=== PATIENT | male | born 1995 | race Caucasian/White ===

== ENCOUNTER 2017-07-21 14:23 | Inpatient (IN) | payer BC ==
[~2017-07-21] VITALS: Ht 177.8 cm; Wt 71.0 kg
[2017-07-21] MEDS ORDERED: ONDANSETRON INJ 2 MG/ML 2 ML VIAL IV STA (14:50)
[2017-07-21] MEDS ORDERED: SODIUM CHLORIDE 0.9% 1000ML 1,000 ML IV STA (14:50)
[2017-07-21] MEDS ORDERED: FAMOTIDINE IV INJ 20 MG in DEXTROSE 5% 100ML 100 ML IV SCH ×2 (15:00→17:30)
[2017-07-21] MEDS ORDERED: PANTOprazole INJ 80 MG in DEXTROSE 5% 100ML IV SCH (15:15)
[2017-07-21 15:24] LABS: BASO % 0.1 %; BASO ABS # 0.02 K/uL (0-0.2); COMPLETE YES; EOS % 0.1 %; HEMATOCRIT 38.8 % (42-52); IG% 0.2 %; LYMPH % 9.5 %; LYMPH ABS # 1.59 K/uL (1.2-3.4); MEAN CELL VOLUME 88.4 fL (80-100); MEAN CORPUSCULAR HEMOGLOBIN 32.1 pg (25-34); MEAN CORPUSCULAR HGB CONC 36.3 g/dl (32-36); MEAN PLATELET VOLUME 9.9 fL (7.4-10.4); MONO % 3.9 %; NEUT % 86.2 %; PLATELET COUNT 374 K/uL (130-400); RED BLOOD COUNT 4.39 M/uL (4.7-6.1); WHITE BLOOD COUNT 16.81 K/uL (4.8-10.8)
[2017-07-21] MEDS ORDERED: PANTOprazole INJ 40 MG in DEXTROSE 5% 100ML IV SCH (15:30)
[2017-07-21 15:33] LABS: INR 1.1 (0.9-1.1); PARTIAL THROMBOPLASTIN RATIO 0.9
[2017-07-21 15:44] LABS: CALCIUM 9.3 mg/dl (8.5-10.1); CREATININE 0.98 mg/dl (0.60-1.40); POTASSIUM 3.7 mmol/L (3.5-5.1)
--- NOTE | 2017-07-21 16:04 | DIAGNOSTIC IMAGING REPORT ---
CHEST ONE VIEW PORTABLE HISTORY: 22 years-old Male EVALUATE GI BLEED acute GI bleed COMPARISON: None available TECHNIQUE: Portable upright AP view of the chest FINDINGS: Cardiomediastinal and hilar silhouettes are within normal limits. There is no pneumothorax, pleural effusion, focal airspace consolidation or overt pulmonary edema. Bones of the chest are grossly intact. IMPRESSION: No acute cardiopulmonary process. The above report was generated using voice recognition software. It may contain grammatical, syntax or spelling errors. Electronically signed by: Darnell Connell M.D. 07/21/2017 4:02 PM Dictated Date/Time: 07/21/2017 4:01 PM
[2017-07-21 16:43] LABS: URINE APPEARANCE CLEAR (CLEAR); URINE BILIRUBIN NEG (NEG); URINE COLOR DK YELLOW; URINE NITRITE NEG (NEG); URINE SPECIFIC GRAVITY 1.031 (1.000-1.030); UROBILINOGEN NEG (NEG)
[2017-07-21 16:44] VITALS: O2SAT 100; Ht 177.8 cm; Wt 71.0 kg
[2017-07-21 16:46] LABS: MANUAL MICROSCOPIC REQUIRED? NO; REVIEW REQ? NO
[2017-07-21] MEDS ORDERED: POLYETHYLENE (MIRALAX) 17 GM PACK PO PRN (17:30)
[2017-07-21] MEDS ORDERED: ACETAMINOPHEN 325 MG TAB PO PRN (17:30)
[2017-07-21] MEDS ORDERED: MAGNESIUM HYDROXIDE SUSP 30 ML UDC PO PRN (17:30)
[2017-07-21] MEDS ORDERED: ZOLPIDEM TARTRATE 5 MG TAB PO PRN ×2 (17:30)
[2017-07-21] MEDS ORDERED: ALUMINUM/MAGNESIUM/SIMETH (MAALOX MAX) 30 ML UDC PO PRN (17:30)
--- NOTE | 2017-07-21 17:42 | EMERGENCY ROOM VISIT NOTE ---
History Report prepared by Marie: Wade Unger Under the Supervision of: Dr. Sam Puentes D.O. First contact with patient: 14:47 Chief Complaint: VOMITING Stated Complaint: VOMITING BLACK SUBSTANCE AND A LOT OF BLOOD History of Present Illness The patient is a 22 year old male who presents to the Emergency Room with complaints of a persistent illness that started last night. He says that he was drinking an excessive amount of beer yesterday, and last night, he started to get sick and vomited. The patient states that he saw small traces of blood in the vomit. He says that he tried to drink lots of water and then went to bed. However, he states that when he woke up this morning, he had abdominal pain and vomited almost immediately. The patient says that when he vomited he noticed that it was really dark with some blood, and he states that he has been vomiting all day, and with each subsequent vomiting, it becomes more and more bloody. He notes that last night his stools were fine, but today he has had 2 bowel movements and they were very black. He says that his abdominal pain comes and goes with the vomiting, and after he vomits, he feels great for a while. The patient states that he gets a bit of a runny nose during his vomiting spells. He denies any cough. The patient says that he drinks alcohol every weekend. He notes no history of abdominal surgeries. He also notes no chronic medical problems. He says that he has not had any Tylenol, Motrin, or recent steroids. Source of History: patient Onset: Last night Position: other (global - illness) Timing: other (persistent) Associated Symptoms: + vomiting (blood), + abdominal pain, No cough Note: Associated symptoms: Very black stools. Bit of runny nose while vomiting. Review of Systems See HPI for pertinent positives & negatives. A total of 10 systems reviewed and were otherwise negative. Past Medical & Surgical Medical Problems: (1) Hematemesis (2) No chronic diseases present Family History No pertinent family history Social History Smoking Status: Never Smoker Alcohol Use: occasionally Marital Status: single Housing Status: lives with roommate Occupation Status: [employer] student Current/Historical Medications No Active Prescriptions or Reported Meds Allergies Coded Allergies: No Known Allergies (Unverified , 07/21/17) Physical Exam Vital Signs Date Time Temp Pulse Resp B/P (MAP) Pulse Ox O2 Delivery O2 Flow Rate FiO2 07/21/17 16:44 100 Room Air 07/21/17 16:30 95 20 148/59 98 Room Air 07/21/17 16:01 147/77 07/21/17 15:53 65 22 100 07/21/17 15:31 135/94 07/21/17 15:26 74 07/21/17 15:21 121/99 07/21/17 15:19 69 20 121/99 99 Room Air 07/21/17 15:15 99 Room Air 07/21/17 14:43 36.5 84 17 144/94 99 Room Air Physical Exam GENERAL: Sitting up in bed, alert, well appearing, well nourished, no distress, non-toxic EYE EXAM: normal conjunctiva. OROPHARYNX: No exudate, no erythema, buccal mucosa, and tongue normal and mucous membranes are dry. Faint blood around lips. NECK: supple, no nuchal rigidity, no adenopathy, non-tender LUNGS: Clear to auscultation. Normal chest wall mechanics HEART: no murmurs, S1 normal and S2 normal ABDOMEN: abdomen soft, non-tender, normo-active bowel sounds, no masses, no rebound or guarding. BACK: Back is symmetrical on inspection and there is no deformity, no midline tenderness, no CVA tenderness. RECTAL: Gross heme-positive stool SKIN: no rashes and no bruising UPPER EXTREMITIES: upper extremities are grossly normal. LOWER EXTREMITIES: No pitting edema. NEURO EXAM: Normal sensorium, cranial nerves II-XII grossly intact, normal speech, no gross weakness of arms, no gross weakness of legs. Medical Decision & Procedures ER Provider Diagnostic Interpretation: X-ray results as stated below per my review and the radiologist's interpretation : CHEST ONE VIEW PORTABLE HISTORY: 22 years-old Male EVALUATE GI BLEED acute GI bleed COMPARISON: None available TECHNIQUE: Portable upright AP view of the chest FINDINGS: Cardiomediastinal and hilar silhouettes are within normal limits. There is no pneumothorax, pleural effusion, focal airspace consolidation or overt pulmonary edema. Bones of the chest are grossly intact. IMPRESSION: No acute cardiopulmonary process. The above report was generated using voice recognition software. It may contain grammatical, syntax or spelling errors. Electronically signed by: Darnell Connell M.D. 07/21/2017 4:02 PM Dictated Date/Time: 07/21/2017 4:01 PM Laboratory Results 07/21/17 15:08 Red Blood Count 4.39, Mean Corpuscular Volume 88.4, Mean Corpuscular Hemoglobin 32.1, Mean Corpuscular Hemoglobin Concent 36.3, Mean Platelet Volume 9.9, Neutrophils (%) (Auto) 86.2, Lymphocytes (%) (Auto) 9.5, Monocytes (%) (Auto) 3.9, Eosinophils (%) (Auto) 0.1, Basophils (%) (Auto) 0.1, Neutrophils # (Auto) 14.49, Lymphocytes # (Auto) 1.59, Monocytes # (Auto) 0.66, Eosinophils # (Auto) 0.01, Basophils # (Auto) 0.02 07/21/17 15:08 Test 07/21/17 15:08 07/21/17 16:10 White Blood Count 16.81 K/uL (4.8-10.8) Red Blood Count 4.39 M/uL (4.7-6.1) Hemoglobin 14.1 g/dL (14.0-18.0) Hematocrit 38.8 % (42-52) Mean Corpuscular Volume 88.4 fL (80-100) Mean Corpuscular Hemoglobin 32.1 pg (25-34) Mean Corpuscular Hemoglobin Concent 36.3 g/dl (32-36) Platelet Count 374 K/uL (130-400) Mean Platelet Volume 9.9 fL (7.4-10.4) Neutrophils (%) (Auto) 86.2 % Lymphocytes (%) (Auto) 9.5 % Monocytes (%) (Auto) 3.9 % Eosinophils (%) (Auto) 0.1 % Basophils (%) (Auto) 0.1 % Neutrophils # (Auto) 14.49 K/uL (1.4-6.5) Lymphocytes # (Auto) 1.59 K/uL (1.2-3.4) Monocytes # (Auto) 0.66 K/uL (0.11-0.59) Eosinophils # (Auto) 0.01 K/uL (0-0.5) Basophils # (Auto) 0.02 K/uL (0-0.2) RDW Standard Deviation 39.8 fL (36.4-46.3) RDW Coefficient of Variation 12.3 % (11.5-14.5) Immature Granulocyte % (Auto) 0.2 % Immature Granulocyte # (Auto) 0.04 K/uL (0.00-0.02) Prothrombin Time 12.0 SECONDS (9.0-12.0) Prothromb Time International Ratio 1.1 (0.9-1.1) Activated Partial Thromboplast Time 22.6 SECONDS (21.0-31.0) Partial Thromboplastin Ratio 0.9 Anion Gap 13.0 mmol/L (3-11) Est Creatinine Clear Calc Drug Dose 115.0 ml/min Estimated GFR () 127.2 Estimated GFR (Non- 109.8 BUN/Creatinine Ratio 19.0 (10-20) Calcium Level 9.3 mg/dl (8.5-10.1) Total Bilirubin 0.8 mg/dl (0.2-1) Direct Bilirubin 0.2 mg/dl (0-0.2) Aspartate Amino Transf (AST/SGOT) 17 U/L (15-37) Alanine Aminotransferase (ALT/SGPT) 23 U/L (12-78) Alkaline Phosphatase 58 U/L (45-117) Total Protein 8.1 gm/dl (6.4-8.2) Albumin 4.7 gm/dl (3.4-5.0) Lipase 76 U/L (73-393) Urine Color DK YELLOW Urine Appearance CLEAR (CLEAR) Urine pH 7.0 (4.5-7.5) Urine Specific [place] 1.031 (1.000-1.030) Urine Protein TRACE (NEG) Urine Glucose (UA) NEG (NEG) Urine Ketones 4+ (NEG) Urine Occult Blood NEG (NEG) Urine Nitrite NEG (NEG) Urine Bilirubin NEG (NEG) Urine Urobilinogen NEG (NEG) Urine Leukocyte Esterase TRACE (NEG) Urine WBC (Auto) 1-5 /hpf (0-5) Urine RBC (Auto) 5-10 /hpf (0-4) Urine Hyaline Casts (Auto) 1-5 /lpf (0-5) Urine Epithelial Cells (Auto) 5-10 /lpf (0-5) Urine Bacteria (Auto) NEG (NEG) Laboratory results per my review. Medications Administered Medications (Trade) Dose Ordered Sig/Aide Route Start Time Stop Time Status Last Admin Dose Admin Sodium Chloride 1,000 ml @ 999 mls/hr Q1H1M STAT IV 07/21/17 14:50 07/21/17 15:50 DC 07/21/17 15:14 999 MLS/HR Ondansetron HCl (Zofran Inj) 4 mg NOW STAT IV 07/21/17 14:50 07/21/17 14:52 DC 07/21/17 15:15 4 MG Pantoprazole Sodium 80 mg/ Dextrose 120 ml @ 480 mls/hr 1515 IV 07/21/17 15:15 07/21/17 15:29 DC 07/21/17 15:28 480 MLS/HR Pantoprazole Sodium 40 mg/ Dextrose 100 ml @ 20 mls/hr Q5H IV 07/21/17 15:30 07/21/17 20:29 07/21/17 15:29 20 MLS/HR ECG Indication: vomiting Rate (beats per minute): 67 Rhythm: sinus rhythm Findings: other (right axis deviation, J-point elevation in septal leads) ED Course ED COURSE: Vital signs were reviewed and showed normal vitals. The patients medical record was reviewed The above diagnostic studies were performed and reviewed. ED treatments and interventions as stated above. 1448: The patient was evaluated in room C3. A complete history and physical examination was performed. 1450: Ordered Zofran Inj 4 mg IV, NSS 1000 ml @ 999 mls/hr IV. 1459: Ordered Protonix IV Bolus/Drip 1 ea IV. 1500: Ordered Famotidine 20 mg/Dextrose 102 ml @ 200 mls/hr IV. 1515: Ordered Pantoprazole Sodium 80 mg/Dextrose 120 ml @ 480 mls/hr IV. 1530: Ordered Pantoprazole Sodium 40 mg/Dextrose 100 ml @ 20 mls/hr IV. 1550: I discussed the patient with Dr. Mallory - [facility] GI - he says to bring the patient in, and agrees with PPI drip and bolus, but does not want to scope the patient now. 1553: I reviewed the patient's case with Dr. Ledezma - [facility] production control clerk. He will evaluate the patient for further management. 1554: Upon reevaluation, the patient is resting and not vomiting blood. He is feeling significantly better. I discussed my findings with the patient and he understands and agrees with the treatment plan. Based on the patients age, coexisting illnesses, exam and lab findings the decision to treat as an inpatient was made. The patient remained stable while under my care. The patient will be evaluated for further management. Medical Decision Differential diagnosis includes etiologies such as diverticulosis, AVM, coagulopathy, colitis, inflammatory bowel disease, malignancy, Paige-Galicia tear, esophagitis, peptic ulcer disease, variceal bleed, gastritis, epistaxis, fissure, hemorrhoids, as well as others were entertained. Patient is a 22-year-old male who presents to ER with hematemesis which started last night. He notes he was drinking heavily and has had bili pain along with vomiting since then. He has been vomiting straight blood. He notes he is also having dark tarry stools. No other medical problems. No steroids or NSAIDs. He drinks twice a week. CBC shows a leukocytosis of 16.8 thousand. No significant anemia. BMP all LFTs, bilirubin and lipase was remarkable for a slightly elevated BUN at 19. INR was normal. UA shows ketones suggesting dehydration. Patient was given fluids. Tox drip and bolus per discussed with GI and they recommended no emergent intervention at this time. Admitted the patient internal medicine. Vitals remain stable. Medication Reconcilliation Current Medication List: was personally reviewed by me Blood Pressure Screening Patient's blood pressure: Normal blood pressure Consults Time Called: 1545 Consulting Physician: Dr. Shawnee Pratt GI Returned Call: 1556 I discussed the patient with Dr. Shawnee Pratt GI - he says to bring the patient in, and agrees with PPI drip and bolus, but does not want to scope the patient now. Additional Consults: Time Called: 1550 Consulted Physician: Dr. Darien DEVINE production control clerk Returned Call: 1556 Additional Comments: I reviewed the patient's case with Dr. Darien DEVINE production control clerk. He will evaluate the patient for further management. Impression Primary Impression: Upper GI bleed Additional Impression: Hematemesis Scribe Attestation The scribe's documentation has been prepared under my direction and personally reviewed by me in its entirety. I confirm that the note above accurately reflects all work, treatment, procedures, and medical decision making performed by me. Departure Information Dispostion Being Evaluated By Hospitalist Prescriptions No Active Prescriptions or Reported Meds Patient Instructions My [facility] Problem Qualifiers Additional Impression: Hematemesis Nausea presence: with nausea Qualified Codes: K92.0 - Hematemesis
[2017-07-21 18:00] VITALS: BP 145/79; PULSE 77; TEMP 36.7; O2SAT 99
--- NOTE | 2017-07-21 18:01 | History and Physical ---
History & Physical Date & Time of Service: Jul 21, 2017 at 16:27 Chief Complaint: Vomiting Black Substance And A Lot Of Blood Primary Care Physician: [facility] History of Present Illness Source: patient Pt is a 22M with no significant PMHx p/w 1 day history of hematemesis and melena. Pt was drinking all day yesterday (Saturday) for homecoming on an empty stomach, 10 beers total, and he didn't eat until the evening. He threw up yesterday evening and noticed some blood streaks in the vomit. Today (Saturday ) patient was nauseous and noticed 3 very dark BM which he's never had before. Around noon he started vomiting red stuff which progressed to bright red shawn blood. He vomited several times in an hour which brought him to the ER. Pt denies daily alcohol use, only typically drinks on the weekend. Doesn't use any NSAIDs or Heartburn meds. No significant PMHx. ROS: No chest pain, no SOB, no dyspnea on exertion, no palpitations, no dysuria , no rash. Has been feeling well prior to yesterday. PMHx: None PSHx: Tonsils, no reaction to anesthesia. 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 Lives in [place]. Smokes tobacco and marijuana occasionally, no other hard drugs. Past Medical/Surgical History Medical Problems: (1) No chronic diseases present Status: Chronic Family History No pertinent family history Social History Smoking Status: Light Tobacco Smoker Allergies Coded Allergies: No Known Allergies (Unverified , 07/21/17) Home Medications No Active Prescriptions or Reported Meds Review of Systems Constitutional: + fever, + chills ENT: No sore throat Respiratory: No cough, No sputum, No shortness of breath, No dyspnea on exertion Abdomen: + nausea, + vomiting, No pain, No diarrhea, No constipation Genitourinary - Male: No hematuria Psychiatric: No depression symptoms, No anxiety Endocrine: + excessive thirst, No fatigue, No excessive urination Integumentary: No rash, No itch Physical Exam Vital Signs Date Time Temp Pulse Resp B/P (MAP) Pulse Ox O2 Delivery O2 Flow Rate FiO2 07/21/17 16:01 147/77 07/21/17 15:53 65 22 100 07/21/17 15:31 135/94 07/21/17 15:26 74 07/21/17 15:21 121/99 07/21/17 15:19 69 20 121/99 99 Room Air 07/21/17 15:15 99 Room Air 07/21/17 14:43 36.5 84 17 144/94 99 Room Air General Appearance: WD/WN, no apparent distress Head: normocephalic Neck: supple, no adenopathy Respiratory/Chest: chest non-tender, lungs clear, normal breath sounds, no respiratory distress, no accessory muscle use Cardiovascular: regular rate, rhythm, no edema, no gallop, no JVD, no murmur, normal peripheral pulses Abdomen/GI: normal bowel sounds, non tender, soft, no organomegaly, no pulsatile mass Back: normal inspection, no CVA tenderness, no muscle spasm Extremities/Musculoskelatal: normal inspection, no calf tenderness, normal capillary refill, no pedal edema, normal range of motion 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, no motor/sensory deficits, alert, normal mood/affect, normal reflexes, oriented x 3 Skin: no rash Diagnostics Laboratory Results Results Past 24 Hours Test 07/21/17 15:08 07/21/17 16:10 Range/Units White Blood Count 16.81 4.8-10.8 K/uL Red Blood Count 4.39 4.7-6.1 M/uL Hemoglobin 14.1 14.0-18.0 g/dL Hematocrit 38.8 42-52 % Mean Corpuscular Volume 88.4 80-100 fL Mean Corpuscular Hemoglobin 32.1 25-34 pg Mean Corpuscular Hemoglobin Concent 36.3 32-36 g/dl Platelet Count 374 130-400 K/uL Mean Platelet Volume 9.9 7.4-10.4 fL Neutrophils (%) (Auto) 86.2 % Lymphocytes (%) (Auto) 9.5 % Monocytes (%) (Auto) 3.9 % Eosinophils (%) (Auto) 0.1 % Basophils (%) (Auto) 0.1 % Neutrophils # (Auto) 14.49 1.4-6.5 K/uL Lymphocytes # (Auto) 1.59 1.2-3.4 K/uL Monocytes # (Auto) 0.66 0.11-0.59 K/uL Eosinophils # (Auto) 0.01 0-0.5 K/uL Basophils # (Auto) 0.02 0-0.2 K/uL RDW Standard Deviation 39.8 36.4-46.3 fL RDW Coefficient of Variation 12.3 11.5-14.5 % Immature Granulocyte % (Auto) 0.2 % Immature Granulocyte # (Auto) 0.04 0.00-0.02 K/uL Prothrombin Time 12.0 9.0-12.0 SECONDS Prothromb Time International Ratio 1.1 0.9-1.1 Activated Partial Thromboplast Time 22.6 21.0-31.0 SECONDS Partial Thromboplastin Ratio 0.9 Sodium Level 140 136-145 mmol/L Potassium Level 3.7 3.5-5.1 mmol/L Chloride Level 104 98-107 mmol/L Carbon Dioxide Level 23 21-32 mmol/L Anion Gap 13.0 3-11 mmol/L Blood Urea Nitrogen 19 7-18 mg/dl Creatinine 0.98 0.60-1.40 mg/dl Est Creatinine Clear Calc Drug Dose 115.0 ml/min Estimated GFR () 127.2 Estimated GFR (Non- 109.8 BUN/Creatinine Ratio 19.0 10-20 Random Glucose 139 70-99 mg/dl Calcium Level 9.3 8.5-10.1 mg/dl Total Bilirubin 0.8 0.2-1 mg/dl Direct Bilirubin 0.2 0-0.2 mg/dl Aspartate Amino Transf (AST/SGOT) 17 15-37 U/L Alanine Aminotransferase (ALT/SGPT) 23 12-78 U/L Alkaline Phosphatase 58 45-117 U/L Total Protein 8.1 6.4-8.2 gm/dl Albumin 4.7 3.4-5.0 gm/dl Lipase 76 73-393 U/L Diagnostic Radiology CHEST ONE VIEW PORTABLE HISTORY: 22 years-old Male EVALUATE GI BLEED acute GI bleed COMPARISON: None available TECHNIQUE: Portable upright AP view of the chest FINDINGS: Cardiomediastinal and hilar silhouettes are within normal limits. There is no pneumothorax, pleural effusion, focal airspace consolidation or overt pulmonary edema. Bones of the chest are grossly intact. IMPRESSION: No acute cardiopulmonary process. Normal EKG Impression Assessment and Plan 22M p/w hemoptysis and melena x 1 day. Suspect Paige Xander Tear or alcoholic gastritis. VSS and Physical exam WNL. GI (Dr. Mallory) consulted to evaluation for upper endoscopy. GI: Hematemesis & Melena * PPI + H2 Citlaly Drip. * NPO except ice chips and sips until midnight. NPO after midnight. * Consult GI (Dr. Mallory), likely scope tomorrow. * IVF Normosol 95mls/hr. Heme - * VSS, pt not transfused in the ER. * Hgb 14.1, Platelets 374 * Patient was type and crossed. * Daily CBCs. * Follow up FOBT. Endo - * Electrolytes: Na+ 140, K+3.7, will continue to monitor. * Well get Mag and Phos in the AM. ID - * Patient was not sick prior to homecoming weekend. * Afebrile, WBC of 16.8. * No cultures ordered. * Likely reactive from vomiting. * Monitor for signs of aspiration or infection (fevers, CBCs) CV / Resp - * X-ray results showed no acute process. No evidence of aspiration. * EKG showed normal sinus rhythm. * HTN: Normotensive Renal/ - * No changes in urination. Creatinine is WNL. 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 Dispo - Observation, Med Surg. Full Code Resident Involvement: Resident Care Provided Care Provided: Adult Hospital Medicine Assessment/Plan Resident Physician Supervision Note: I was present with Dr. Mireles during the history and exam. I discussed the case with the resident and agree with the findings and plan as documented in the note. Any exceptions or clarifications are listed here. 22 y/o male h/o binge alcohol use presents w/ episodic hematemesis and melanotic stool. At present, the patient reports mild abdominal discomfort and nausea both of which are significantly improved from previous. S1/S2 nl RRR no MCG. CTAB. Mildly diffuse TTP abdomen without rebound or murphys. UGIB - PPI + H2 drip. GI consulted. Continue IVF. NPO p MN. Trend CBC
[2017-07-21] MEDS ORDERED: IV FLUIDS COMPLETED PRN (18:15)
[2017-07-21] MEDS: FAMOTIDINE IV INJ 20 MG in SYRINGE 3 ML IV SCH (18:51)
[2017-07-21] MEDS: NORMOSOL R 1,000 ML IV SCH (18:51)
[2017-07-21] MEDS: PANTOprazole INJ 40 MG in DEXTROSE 5% 100ML 100 ML IV SCH (20:53)
[2017-07-21 22:47] VITALS: BP_SYST 140; BP_SYST 153; BP_DIAS 68; BP_DIAS 75; PULSE 79
[2017-07-21 22:53] VITALS: BP 118/77; PULSE 98; TEMP 36.6; O2SAT 99
[2017-07-21 23:00] VITALS: BP_SYST 140; BP_SYST 153; BP_DIAS 68; BP_DIAS 75; PULSE 79
[2017-07-21] MEDS: ONDANSETRON INJ 2 MG/ML 2 ML VIAL IV PRN (23:15)
[2017-07-22] VITALS (17 sets, daily range): BP systolic 127–171; BP diastolic 63–94; PULSE 77–142; TEMP 36.7–37.1; O2SAT 97–100
[2017-07-22 00:14] LABS: HEMATOCRIT 31.4 % (42-52)
[2017-07-22] MEDS ORDERED: METOCLOPRAMIDE HCL INJ 5 MG/ML 2 ML VIAL IV PRN (00:30)
[2017-07-22] MEDS: PANTOprazole INJ 40 MG in DEXTROSE 5% 100ML 100 ML IV SCH ×3 (01:26→09:24)
[2017-07-22] MEDS ORDERED: ACETAMINOPHEN IV 650 MG in EMPTY BAG 0 ML IV PRN (01:45)
[2017-07-22] MEDS ORDERED: MoRPHine SULFATE 2 MG/ML CARP IV PRN (01:45)
[2017-07-22] MEDS: ONDANSETRON INJ 2 MG/ML 2 ML VIAL IV PRN (05:35)
[2017-07-22] MEDS: NORMOSOL R 1,000 ML IV SCH ×2 (05:38→15:40)
[2017-07-22] MEDS ORDERED: SODIUM CHLORIDE 0.9% 1000ML 1,000 ML IV STA (06:04)
[2017-07-22 06:36] LABS: BASO % 0.1 %; BASO ABS # 0.01 K/uL (0-0.2); EOS % 0.1 %; HEMATOCRIT 25.1 % (42-52); IG% 0.2 %; MEAN CORPUSCULAR HEMOGLOBIN 31.2 pg (25-34); MEAN PLATELET VOLUME 9.5 fL (7.4-10.4); MONO % 9.5 %; NEUT % 69.1 %; PLATELET COUNT 293 K/uL (130-400); RED BLOOD COUNT 2.82 M/uL (4.7-6.1); WHITE BLOOD COUNT 11.91 K/uL (4.8-10.8)
[2017-07-22 06:39] LABS: MEAN CORPUSCULAR HGB CONC 35.1 g/dl (32-36)
--- NOTE | 2017-07-22 06:56 | Gastroenterology Progress Note ---
Progress Note Date of Service: Jul 22, 2017 Medications Current Inpatient Medications Medications (Trade) Dose Ordered Sig/Aide Route Start Time Stop Time Status Last Admin Dose Admin Acetaminophen (Tylenol Tab) 650 mg Q4H PRN PO 07/21/17 17:30 08/20/17 17:29 Al Hydrox/Mg Hydrox/Simethicone (Maalox Max Susp) 15 ml Q4H PRN PO 07/21/17 17:30 08/20/17 17:29 Magnesium Hydroxide (Milk Of Magnesia Susp) 30 ml Q6H PRN PO 07/21/17 17:30 08/20/17 17:29 Polyethylene (Miralax Powder Packet) 17 gm DAILY PRN PO 07/21/17 17:30 08/20/17 17:29 Zolpidem Tartrate (Ambien Tab) 5 mg HSZ PRN PO 07/21/17 17:30 08/20/17 17:29 Ondansetron HCl (Zofran Inj) 4 mg Q6H PRN IV 07/21/17 17:30 08/20/17 17:29 07/22/17 05:35 4 MG Parenteral Electrolyte Solution 1,000 ml @ 95 mls/hr [id number] IV 07/21/17 19:00 07/23/17 02:34 07/22/17 05:38 95 MLS/HR Pantoprazole Sodium 40 mg/ Dextrose 110 ml @ 20 mls/hr Q5H IV 07/21/17 20:30 08/20/17 20:29 07/22/17 05:17 20 MLS/HR Miscellaneous (Iv Fluids Completed) 1 ea PRN PRN N/A 07/21/17 18:15 07/21/18 18:14 Famotidine 20 mg/ Syringe 5 ml @ 2.5 mls/min Q12H IV 07/21/17 19:00 08/20/17 18:59 07/21/17 18:51 2.5 MLS/MIN Metoclopramide HCl (Reglan Inj) 10 mg Q6H PRN IV 07/22/17 00:30 08/21/17 00:29 07/22/17 01:33 10 MG Acetaminophen 650 mg/Empty Bag 65 ml @ 260 mls/hr Q6H PRN IV 07/22/17 01:45 08/21/17 01:44 Morphine Sulfate (MoRPHine SULFATE INJ) 2 mg Q4H PRN IV 07/22/17 01:45 08/05/17 01:44 Sodium Chloride 1,000 ml @ 999 mls/hr Q1H1M STAT IV 07/22/17 06:04 07/22/17 07:04 07/22/17 06:11 999 MLS/HR Objective Vital Signs Date Time Temp Pulse Resp B/P (MAP) Pulse Ox O2 Delivery O2 Flow Rate FiO2 07/22/17 06:25 110 160/94 (116) 105 07/22/17 05:56 36.8 142 158/72 (100) 100 Room Air 135 07/22/17 01:38 79 146/75 (98) 07/22/17 00:00 Room Air 07/21/17 23:00 79 153/68 (96) 140/75 (96) 07/21/17 22:53 36.6 98 20 118/77 (91) 99 Room Air 07/21/17 20:00 Room Air 07/21/17 18:00 Room Air 07/21/17 18:00 36.7 77 18 145/79 (101) 99 Room Air 07/21/17 17:52 73 16 174/60 99 07/21/17 17:31 73 16 174/60 99 07/21/17 16:44 100 Room Air 07/21/17 16:30 95 20 148/59 98 Room Air 07/21/17 16:01 147/77 07/21/17 15:53 65 22 100 07/21/17 15:31 135/94 07/21/17 15:26 74 07/21/17 15:21 121/99 07/21/17 15:19 69 20 121/99 99 Room Air 07/21/17 15:15 99 Room Air 07/21/17 14:43 36.5 84 17 144/94 99 Room Air Laboratory Results Last 24 Hours Test 07/21/17 15:08 07/21/17 16:10 07/22/17 00:02 07/22/17 06:29 White Blood Count 16.81 K/uL 11.91 K/uL Red Blood Count 4.39 M/uL 2.82 M/uL Hemoglobin 14.1 g/dL 11.1 g/dL 8.8 g/dL Hematocrit 38.8 % 31.4 % 25.1 % Mean Corpuscular Volume 88.4 fL 89.0 fL Mean Corpuscular Hemoglobin 32.1 pg 31.2 pg Mean Corpuscular Hemoglobin Concent 36.3 g/dl 35.1 g/dl Platelet Count 374 K/uL 293 K/uL Mean Platelet Volume 9.9 fL 9.5 fL Neutrophils (%) (Auto) 86.2 % 69.1 % Lymphocytes (%) (Auto) 9.5 % 21.0 % Monocytes (%) (Auto) 3.9 % 9.5 % Eosinophils (%) (Auto) 0.1 % 0.1 % Basophils (%) (Auto) 0.1 % 0.1 % Neutrophils # (Auto) 14.49 K/uL 8.24 K/uL Lymphocytes # (Auto) 1.59 K/uL 2.50 K/uL Monocytes # (Auto) 0.66 K/uL 1.13 K/uL Eosinophils # (Auto) 0.01 K/uL 0.01 K/uL Basophils # (Auto) 0.02 K/uL 0.01 K/uL RDW Standard Deviation 39.8 fL 40.4 fL RDW Coefficient of Variation 12.3 % 12.5 % Immature Granulocyte % (Auto) 0.2 % 0.2 % Immature Granulocyte # (Auto) 0.04 K/uL 0.02 K/uL Prothrombin Time 12.0 SECONDS Prothromb Time International Ratio 1.1 Activated Partial Thromboplast Time 22.6 SECONDS Partial Thromboplastin Ratio 0.9 Sodium Level 140 mmol/L Potassium Level 3.7 mmol/L Chloride Level 104 mmol/L Carbon Dioxide Level 23 mmol/L Anion Gap 13.0 mmol/L Blood Urea Nitrogen 19 mg/dl Creatinine 0.98 mg/dl Est Creatinine Clear Calc Drug Dose 115.0 ml/min Estimated GFR () 127.2 Estimated GFR (Non- 109.8 BUN/Creatinine Ratio 19.0 Random Glucose 139 mg/dl Calcium Level 9.3 mg/dl Total Bilirubin 0.8 mg/dl Direct Bilirubin 0.2 mg/dl Aspartate Amino Transf (AST/SGOT) 17 U/L Alanine Aminotransferase (ALT/SGPT) 23 U/L Alkaline Phosphatase 58 U/L Total Protein 8.1 gm/dl Albumin 4.7 gm/dl Lipase 76 U/L Urine Color DK YELLOW Urine Appearance CLEAR Urine pH 7.0 Urine Specific [place] 1.031 Urine Protein TRACE Urine Glucose (UA) NEG Urine Ketones 4+ Urine Occult Blood NEG Urine Nitrite NEG Urine Bilirubin NEG Urine Urobilinogen NEG Urine Leukocyte Esterase TRACE Urine WBC (Auto) 1-5 /hpf Urine RBC (Auto) 5-10 /hpf Urine Hyaline Casts (Auto) 1-5 /lpf Urine Epithelial Cells (Auto) 5-10 /lpf Urine Bacteria (Auto) NEG Assessment and Plan Chart reviewed and patient seen. Full consult to follow. Continue PPI, NG to LIS because of ongoing hemetemsis. EGD today. Proc and risks explained which include but not limited to med reaction, bleeding, perforation, and aspiration. Check abd series post NG placement. Discussed with Dr Louie and Dr Baldwin. Also discussed with Dr Baldwin recommend ICU care patient H and H dropped and tachycardic.
[2017-07-22 06:58] LABS: BUN/CREATININE RATIO 30.3 (10-20); CREATININE 1.03 mg/dl (0.60-1.40); PHOSPHORUS 2.4 mg/dl (2.5-4.9); POTASSIUM 3.8 mmol/L (3.5-5.1)
[2017-07-22] MEDS ORDERED: SODIUM CHLORIDE 0.9% 1000ML 1,000 ML IV ONE (07:00)
[2017-07-22] MEDS: FAMOTIDINE IV INJ 20 MG in SYRINGE 3 ML IV SCH (07:00)
[2017-07-22 07:03] LABS: CALCIUM 7.9 mg/dl (8.5-10.1)
[2017-07-22 07:25] LABS: COMPLETE YES
[2017-07-22] MEDS ORDERED: LORAZEPAM 2 MG/ML 1 ML VIAL ONE (07:25)
[2017-07-22] MEDS ORDERED: LORAZEPAM 2 MG/ML 1 ML VIAL IV PRN (07:30)
--- NOTE | 2017-07-22 07:38 | Gastrointestinal Consultation ---
Gastrointestinal Consultation Date of Consultation: Jul 22, 2017 Attending Physician: DR Kiera Rincon Consulting Physician: Dr Osei Mallory Reason for Consultation: Hematemesis History of Present Illness Patient is a 22 year old male with CC of vomiting blood. HPI. Pt was drinking beer heavily at [employer] saturday and did not eat any food until evening. In the evening he vomited food and also trace read blood. Saturday07/11/17 woke up with abd pain which comes and goes relieved by vomiting. He also vomited shawn blood increasing throughout the day. Presented to ER stable with Hgb 14.1. However, overnigh as of 0630 vomited 1000 ml of shawn red blood with last about 0600 per patient and nursing. He had black tarry stools times 2 yesterday but none overnight. This am tachycardic and dizzy and short of breath with exertion. He takes some Ibuprofen for headaches but none in weeks and no other NSAIDS. He does drink ETOh on weekends. He gets some abd pain with stress such as tests and rare GERD. No previous GI doctors and no scopes done per patient. CBC on admit 16 now 11.1. CXR neg, CMP BUNT 19, gluc 130, lipase normal. Hgb 11.1 at [place] then 8.8 at 0630. Coags normal. Do not see GI imaging on the chart. Some running nose associated with the vomiting. Past Medical/Surgical History Medical Problems: (1) Upper GI bleed Status: Acute Family History No pertinent family history Brother with GI issued but specifics unknown to patient. Social History Smoking Status: Light Tobacco Smoker Alcohol Use: heavy (just prior to admit) Marital Status: single Housing Status: lives with roommate Occupation Status: [place] [employer] student Allergies Coded Allergies: No Known Allergies (Unverified , 07/21/17) Current Medications Home Meds and Scripts Medications Dose Route/Sig Max Daily Dose Days Date Category No Active Prescriptions or Reported Medications Rx Review of Systems see HPI. Otherwise 10 ROS negative. Physical Exam Date Time Temp Pulse Resp B/P (MAP) Pulse Ox O2 Delivery O2 Flow Rate FiO2 07/22/17 06:25 110 160/94 (116) 105 07/22/17 05:56 36.8 142 158/72 (100) 100 Room Air 135 07/22/17 01:38 79 146/75 (98) 07/22/17 00:00 Room Air 07/21/17 23:00 79 153/68 (96) 140/75 (96) 07/21/17 22:53 36.6 98 20 118/77 (91) 99 Room Air 07/21/17 20:00 Room Air 07/21/17 18:00 Room Air 07/21/17 18:00 36.7 77 18 145/79 (101) 99 Room Air 07/21/17 17:52 73 16 174/60 99 07/21/17 17:31 73 16 174/60 99 07/21/17 16:44 100 Room Air 07/21/17 16:30 95 20 148/59 98 Room Air 07/21/17 16:01 147/77 07/21/17 15:53 65 22 100 07/21/17 15:31 135/94 07/21/17 15:26 74 07/21/17 15:21 121/99 07/21/17 15:19 69 20 121/99 99 Room Air 07/21/17 15:15 99 Room Air 07/21/17 14:43 36.5 84 17 144/94 99 Room Air General Appearance: WD/WN, no apparent distress Eyes: normal inspection ENT: hearing grossly normal, pharynx normal Neck: supple, trachea midline Respiratory/Chest: lungs clear, normal breath sounds Cardiovascular: no edema, no murmur, + tachycardia Abdomen: normal bowel sounds, non tender, soft, no organomegaly, no pulsatile mass 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, normal mood/affect, oriented x 3 Laboratory Results Last 24 Hours Test 07/21/17 15:08 07/21/17 16:10 07/22/17 00:02 07/22/17 06:29 White Blood Count 16.81 K/uL 11.91 K/uL Red Blood Count 4.39 M/uL 2.82 M/uL Hemoglobin 14.1 g/dL 11.1 g/dL 8.8 g/dL Hematocrit 38.8 % 31.4 % 25.1 % Mean Corpuscular Volume 88.4 fL 89.0 fL Mean Corpuscular Hemoglobin 32.1 pg 31.2 pg Mean Corpuscular Hemoglobin Concent 36.3 g/dl 35.1 g/dl Platelet Count 374 K/uL 293 K/uL Mean Platelet Volume 9.9 fL 9.5 fL Neutrophils (%) (Auto) 86.2 % 69.1 % Lymphocytes (%) (Auto) 9.5 % 21.0 % Monocytes (%) (Auto) 3.9 % 9.5 % Eosinophils (%) (Auto) 0.1 % 0.1 % Basophils (%) (Auto) 0.1 % 0.1 % Neutrophils # (Auto) 14.49 K/uL 8.24 K/uL Lymphocytes # (Auto) 1.59 K/uL 2.50 K/uL Monocytes # (Auto) 0.66 K/uL 1.13 K/uL Eosinophils # (Auto) 0.01 K/uL 0.01 K/uL Basophils # (Auto) 0.02 K/uL 0.01 K/uL RDW Standard Deviation 39.8 fL 40.4 fL RDW Coefficient of Variation 12.3 % 12.5 % Immature Granulocyte % (Auto) 0.2 % 0.2 % Immature Granulocyte # (Auto) 0.04 K/uL 0.02 K/uL Prothrombin Time 12.0 SECONDS Prothromb Time International Ratio 1.1 Activated Partial Thromboplast Time 22.6 SECONDS Partial Thromboplastin Ratio 0.9 Sodium Level 140 mmol/L 142 mmol/L Potassium Level 3.7 mmol/L 3.8 mmol/L Chloride Level 104 mmol/L 107 mmol/L Carbon Dioxide Level 23 mmol/L 21 mmol/L Anion Gap 13.0 mmol/L 14.0 mmol/L Blood Urea Nitrogen 19 mg/dl 31 mg/dl Creatinine 0.98 mg/dl 1.03 mg/dl Est Creatinine Clear Calc Drug Dose 115.0 ml/min 109.4 ml/min Estimated GFR () 127.2 119.8 Estimated GFR (Non- 109.8 103.4 BUN/Creatinine Ratio 19.0 30.3 Random Glucose 139 mg/dl 147 mg/dl Calcium Level 9.3 mg/dl 7.9 mg/dl Total Bilirubin 0.8 mg/dl Direct Bilirubin 0.2 mg/dl Aspartate Amino Transf (AST/SGOT) 17 U/L Alanine Aminotransferase (ALT/SGPT) 23 U/L Alkaline Phosphatase 58 U/L Total Protein 8.1 gm/dl Albumin 4.7 gm/dl Lipase 76 U/L Urine Color DK YELLOW Urine Appearance CLEAR Urine pH 7.0 Urine Specific [place] 1.031 Urine Protein TRACE Urine Glucose (UA) NEG Urine Ketones 4+ Urine Occult Blood NEG Urine Nitrite NEG Urine Bilirubin NEG Urine Urobilinogen NEG Urine Leukocyte Esterase TRACE Urine WBC (Auto) 1-5 /hpf Urine RBC (Auto) 5-10 /hpf Urine Hyaline Casts (Auto) 1-5 /lpf Urine Epithelial Cells (Auto) 5-10 /lpf Urine Bacteria (Auto) NEG Red Blood Cell Morphology Unremarkable Phosphorus Level 2.4 mg/dl Magnesium Level 2.0 mg/dl Impression UGI bleeding--continue PPI, Place NG, follow H and H q 2 hours, EGD today. anemia--secondary to UGI bleeding as above, H and H q2 hours and transfuse as needed. abd pain-off and on--check abd series after NG placed. BW not suggestive of ischemic bowel. n/v--presumably from blood accumulation in stomach. check abd series to look for obstruction. Tachycardia--from GI bleeding
--- NOTE | 2017-07-22 08:15 | Gastroenterology Progress Note ---
Progress Note Date of Service: Jul 22, 2017 Medications Current Inpatient Medications Medications (Trade) Dose Ordered Sig/Aide Route Start Time Stop Time Status Last Admin Dose Admin Al Hydrox/Mg Hydrox/Simethicone (Maalox Max Susp) 15 ml Q4H PRN PO 07/21/17 17:30 08/20/17 17:29 Ondansetron HCl (Zofran Inj) 4 mg Q6H PRN IV 07/21/17 17:30 08/20/17 17:29 07/22/17 05:35 4 MG Parenteral Electrolyte Solution 1,000 ml @ 95 mls/hr [id number] IV 07/21/17 19:00 07/23/17 02:34 07/22/17 05:38 95 MLS/HR Pantoprazole Sodium 40 mg/ Dextrose 110 ml @ 20 mls/hr Q5H IV 07/21/17 20:30 08/20/17 20:29 07/22/17 05:17 20 MLS/HR Miscellaneous (Iv Fluids Completed) 1 ea PRN PRN N/A 07/21/17 18:15 07/21/18 18:14 Famotidine 20 mg/ Syringe 5 ml @ 2.5 mls/min Q12H IV 07/21/17 19:00 08/20/17 18:59 07/21/17 18:51 2.5 MLS/MIN Metoclopramide HCl (Reglan Inj) 10 mg Q6H PRN IV 07/22/17 00:30 08/21/17 00:29 07/22/17 01:33 10 MG Acetaminophen 650 mg/Empty Bag 65 ml @ 260 mls/hr Q6H PRN IV 07/22/17 01:45 08/21/17 01:44 Morphine Sulfate (MoRPHine SULFATE INJ) 2 mg Q4H PRN IV 07/22/17 01:45 08/05/17 01:44 Sodium Chloride 1,000 ml @ 999 mls/hr Q1H1M ONCE IV 07/22/17 07:00 07/22/17 08:00 Lorazepam (Ativan Inj) 0.25 mg Q4H PRN IV 07/22/17 07:30 08/21/17 07:29 UNV Objective Vital Signs Date Time Temp Pulse Resp B/P (MAP) Pulse Ox O2 Delivery O2 Flow Rate FiO2 07/22/17 06:25 110 160/94 (116) 105 07/22/17 05:56 36.8 142 158/72 (100) 100 Room Air 135 07/22/17 01:38 79 146/75 (98) 07/22/17 00:00 Room Air 07/21/17 23:00 79 153/68 (96) 140/75 (96) 07/21/17 22:53 36.6 98 20 118/77 (91) 99 Room Air 07/21/17 20:00 Room Air 07/21/17 18:00 Room Air 07/21/17 18:00 36.7 77 18 145/79 (101) 99 Room Air 07/21/17 17:52 73 16 174/60 99 07/21/17 17:31 73 16 174/60 99 07/21/17 16:44 100 Room Air 07/21/17 16:30 95 20 148/59 98 Room Air 07/21/17 16:01 147/77 07/21/17 15:53 65 22 100 07/21/17 15:31 135/94 07/21/17 15:26 74 07/21/17 15:21 121/99 07/21/17 15:19 69 20 121/99 99 Room Air 07/21/17 15:15 99 Room Air 07/21/17 14:43 36.5 84 17 144/94 99 Room Air Laboratory Results Last 24 Hours Test 07/21/17 15:08 07/21/17 16:10 07/22/17 00:02 07/22/17 06:29 White Blood Count 16.81 K/uL 11.91 K/uL Red Blood Count 4.39 M/uL 2.82 M/uL Hemoglobin 14.1 g/dL 11.1 g/dL 8.8 g/dL Hematocrit 38.8 % 31.4 % 25.1 % Mean Corpuscular Volume 88.4 fL 89.0 fL Mean Corpuscular Hemoglobin 32.1 pg 31.2 pg Mean Corpuscular Hemoglobin Concent 36.3 g/dl 35.1 g/dl Platelet Count 374 K/uL 293 K/uL Mean Platelet Volume 9.9 fL 9.5 fL Neutrophils (%) (Auto) 86.2 % 69.1 % Lymphocytes (%) (Auto) 9.5 % 21.0 % Monocytes (%) (Auto) 3.9 % 9.5 % Eosinophils (%) (Auto) 0.1 % 0.1 % Basophils (%) (Auto) 0.1 % 0.1 % Neutrophils # (Auto) 14.49 K/uL 8.24 K/uL Lymphocytes # (Auto) 1.59 K/uL 2.50 K/uL Monocytes # (Auto) 0.66 K/uL 1.13 K/uL Eosinophils # (Auto) 0.01 K/uL 0.01 K/uL Basophils # (Auto) 0.02 K/uL 0.01 K/uL RDW Standard Deviation 39.8 fL 40.4 fL RDW Coefficient of Variation 12.3 % 12.5 % Immature Granulocyte % (Auto) 0.2 % 0.2 % Immature Granulocyte # (Auto) 0.04 K/uL 0.02 K/uL Prothrombin Time 12.0 SECONDS Prothromb Time International Ratio 1.1 Activated Partial Thromboplast Time 22.6 SECONDS Partial Thromboplastin Ratio 0.9 Sodium Level 140 mmol/L 142 mmol/L Potassium Level 3.7 mmol/L 3.8 mmol/L Chloride Level 104 mmol/L 107 mmol/L Carbon Dioxide Level 23 mmol/L 21 mmol/L Anion Gap 13.0 mmol/L 14.0 mmol/L Blood Urea Nitrogen 19 mg/dl 31 mg/dl Creatinine 0.98 mg/dl 1.03 mg/dl Est Creatinine Clear Calc Drug Dose 115.0 ml/min 109.4 ml/min Estimated GFR () 127.2 119.8 Estimated GFR (Non- 109.8 103.4 BUN/Creatinine Ratio 19.0 30.3 Random Glucose 139 mg/dl 147 mg/dl Calcium Level 9.3 mg/dl 7.9 mg/dl Total Bilirubin 0.8 mg/dl Direct Bilirubin 0.2 mg/dl Aspartate Amino Transf (AST/SGOT) 17 U/L Alanine Aminotransferase (ALT/SGPT) 23 U/L Alkaline Phosphatase 58 U/L Total Protein 8.1 gm/dl Albumin 4.7 gm/dl Lipase 76 U/L Urine Color DK YELLOW Urine Appearance CLEAR Urine pH 7.0 Urine Specific [place] 1.031 Urine Protein TRACE Urine Glucose (UA) NEG Urine Ketones 4+ Urine Occult Blood NEG Urine Nitrite NEG Urine Bilirubin NEG Urine Urobilinogen NEG Urine Leukocyte Esterase TRACE Urine WBC (Auto) 1-5 /hpf Urine RBC (Auto) 5-10 /hpf Urine Hyaline Casts (Auto) 1-5 /lpf Urine Epithelial Cells (Auto) 5-10 /lpf Urine Bacteria (Auto) NEG Red Blood Cell Morphology Unremarkable Phosphorus Level 2.4 mg/dl Magnesium Level 2.0 mg/dl Test 07/22/17 08:00 Assessment and Plan Spoke with PA in ICU. Pt to be stablized hemodynamically including 2 units PRBCs. Spoke with Dr Hair who will most likely be doing the case. Spoke with endo and anesthesia. Will assume by noon should have had NG down, Abd series done and transfusion complete so be ok to do EGD.
--- NOTE | 2017-07-22 08:44 | DIAGNOSTIC IMAGING REPORT ---
KUB HISTORY: S/p NGT COMPARISON: None. FINDINGS: The bowel gas pattern is unremarkable. There are no dilated loops of small bowel to suggest an obstruction. No renal calculi. No ureteral calculi. No pneumoperitoneum or pneumatosis. Nasogastric tube terminates in the stomach. IMPRESSION: Nasogastric tube terminates in the stomach. Electronically signed by: Bal Zhang M.D. 07/22/2017 8:43 AM Dictated Date/Time: 07/22/2017 8:43 AM
[2017-07-22 09:32] LABS: HEMATOCRIT 27.7 % (42-52)
--- NOTE | 2017-07-22 10:19 | Critical Care Consultation ---
Critical Care Consultation Date of Consultation: Jul 22, 2017. Attending Physician: Kiera Rincon M.D. Reason for Consultation: Hematemesis, melena History of Present Illness 22year old male was admitted with hematemesis and melena. He had been drinking on Saturday (07/20) for homecoming, 10 beers total, without any food intake until the evening. He vomited in the evening and noted some streaks of blood streaks in the emesis. The following day, the patient had ongoing nausea and had 3 BM with tarry stools, which was not normal for him. He had further episodes of emesis with notably greater amounts of bright red shawn blood, at which point he was brought to the ER. On admission, he was started on a Protonix drip and GI was consulted. A type and screen was performed, but H/H did not warrant immediate transfusion. When asked about symptoms of anemia/coagulopathy, patient states he has some lightheadedness and fatigue. He denies vision changes, chest pain, palpitations , dyspnea at rest or on exertion, no bruising, no hematuria, no hematochezia He is complaining of slight discomfort of nose secondary to NG tube insertion. Patient has no significant past medical history and was feeling well prior to yesterday. He denies daily alcohol usage. He also denies NSAIDs or chronic steroid use. Overnight however, patient had ongoing episodes of hematemesis, and a substantial drop in Hb from 14.1 to 11.1 to 8.8 was noted, along with an elevation in the BUN from 19 to 31. Fluid resuscitation was commenced and patient was transferred to the ICU for closer monitoring. Past Medical/Surgical History PMHx: nil PSHx: Tonsillectomy Family History No pertinent family history Unremarkable Social History Antonio studying [employer] at [employer]. [place] is home Smoking Status: Light Tobacco Smoker Alcohol Use: socially Drug Use: marijuana Marital Status: single Housing Status: lives with roommate Occupation Status: [employer] student Allergies Coded Allergies: No Known Allergies (Unverified , 07/21/17) Home Medications No Active Prescriptions or Reported Meds Current Inpatient Medications Current Inpatient Medications Medications (Trade) Dose Ordered Sig/Aide Route Start Time Stop Time Status Last Admin Dose Admin Al Hydrox/Mg Hydrox/Simethicone (Maalox Max Susp) 15 ml Q4H PRN PO 07/21/17 17:30 08/20/17 17:29 Ondansetron HCl (Zofran Inj) 4 mg Q6H PRN IV 07/21/17 17:30 08/20/17 17:29 07/22/17 05:35 4 MG Parenteral Electrolyte Solution 1,000 ml @ 100 mls/hr Q10H IV 07/21/17 19:00 07/23/17 01:38 07/22/17 05:38 95 MLS/HR Pantoprazole Sodium 40 mg/ Dextrose 110 ml @ 20 mls/hr Q5H IV 07/21/17 20:30 08/20/17 20:29 07/22/17 09:24 20 MLS/HR Miscellaneous (Iv Fluids Completed) 1 ea PRN PRN N/A 07/21/17 18:15 07/21/18 18:14 Acetaminophen 650 mg/Empty Bag 65 ml @ 260 mls/hr Q6H PRN IV 07/22/17 01:45 08/21/17 01:44 Morphine Sulfate (MoRPHine SULFATE INJ) 2 mg Q4H PRN IV 07/22/17 01:45 08/05/17 01:44 Lorazepam (Ativan Inj) 0.25 mg Q4H PRN IV 07/22/17 07:30 08/21/17 07:29 Review of Systems ROS unremarkable except as noted above Physical Exam Date Time Temp Pulse Resp B/P (MAP) Pulse Ox O2 Delivery O2 Flow Rate FiO2 07/22/17 08:44 36.8 95 14 145/67 (93) 100 Room Air 07/22/17 08:40 36.8 98 21 145/67 100 07/22/17 08:25 36.8 105 21 137/64 99 07/22/17 08:11 36.8 114 21 171/92 100 07/22/17 08:03 36.8 104 19 171/92 100 07/22/17 08:00 Room Air 07/22/17 07:43 36.7 111 22 148/74 98 07/22/17 07:31 36.9 102 19 128/73 99 07/22/17 06:25 110 160/94 (116) 105 07/22/17 05:56 36.8 142 158/72 (100) 100 Room Air 135 07/22/17 01:38 79 146/75 (98) 07/22/17 00:00 Room Air 07/21/17 23:00 79 153/68 (96) 140/75 (96) 07/21/17 22:53 36.6 98 20 118/77 (91) 99 Room Air 07/21/17 20:00 Room Air 07/21/17 18:00 Room Air 07/21/17 18:00 36.7 77 18 145/79 (101) 99 Room Air 07/21/17 17:52 73 16 174/60 99 07/21/17 17:31 73 16 174/60 99 07/21/17 16:44 100 Room Air 07/21/17 16:30 95 20 148/59 98 Room Air 07/21/17 16:01 147/77 07/21/17 15:53 65 22 100 07/21/17 15:31 135/94 07/21/17 15:26 74 07/21/17 15:21 121/99 07/21/17 15:19 69 20 121/99 99 Room Air 07/21/17 15:15 99 Room Air 07/21/17 14:43 36.5 84 17 144/94 99 Room Air GENERAL: alert, pale appearing, lying in bed, no acute distress, non-toxic HEAD: NC/AT EYES: PERRL, EOMI, normal sclera, conjunctival pallor OROPHARYNX: No perioral cyanosis. No exudate, no erythema. Old blood noted. Lips , buccal mucosa, and tongue normal and mucous membranes are dry NECK: Supple, no adenopathy, non-tender LUNGS: Normal chest wall mechanics. CTAB, good air entry. No crepitations, crackles, or wheezes HEART: RRR, S1 and S2 normal, no murmurs appreciated ABDOMEN: Soft, non-tender, normo-active bowel sounds, no masses, no rebound or guarding. BACK: Back is symmetrical on inspection, no deformities, no midline tenderness, no CVA tenderness. SKIN: Warm, pink, dry. No erythema, rashes, or bruising. EXTREMITIES: Grossly normal. Moving all 4 limbs, strength 5/5. No pitting edema. Calves supple. NEURO: Alert, Ox3. No focal deficits. Cranial nerves II-XII grossly intact, normal speech. PSYCH: Mood and affect appropriate. Laboratory Results Last 24 Hours Test 07/21/17 15:08 11/12/17 16:10 07/22/17 00:02 07/22/17 06:29 White Blood Count 16.81 K/uL 11.91 K/uL Red Blood Count 4.39 M/uL 2.82 M/uL Hemoglobin 14.1 g/dL 11.1 g/dL 8.8 g/dL Hematocrit 38.8 % 31.4 % 25.1 % Mean Corpuscular Volume 88.4 fL 89.0 fL Mean Corpuscular Hemoglobin 32.1 pg 31.2 pg Mean Corpuscular Hemoglobin Concent 36.3 g/dl 35.1 g/dl Platelet Count 374 K/uL 293 K/uL Mean Platelet Volume 9.9 fL 9.5 fL Neutrophils (%) (Auto) 86.2 % 69.1 % Lymphocytes (%) (Auto) 9.5 % 21.0 % Monocytes (%) (Auto) 3.9 % 9.5 % Eosinophils (%) (Auto) 0.1 % 0.1 % Basophils (%) (Auto) 0.1 % 0.1 % Neutrophils # (Auto) 14.49 K/uL 8.24 K/uL Lymphocytes # (Auto) 1.59 K/uL 2.50 K/uL Monocytes # (Auto) 0.66 K/uL 1.13 K/uL Eosinophils # (Auto) 0.01 K/uL 0.01 K/uL Basophils # (Auto) 0.02 K/uL 0.01 K/uL RDW Standard Deviation 39.8 fL 40.4 fL RDW Coefficient of Variation 12.3 % 12.5 % Immature Granulocyte % (Auto) 0.2 % 0.2 % Immature Granulocyte # (Auto) 0.04 K/uL 0.02 K/uL Prothrombin Time 12.0 SECONDS Prothromb Time International Ratio 1.1 Activated Partial Thromboplast Time 22.6 SECONDS Partial Thromboplastin Ratio 0.9 Sodium Level 140 mmol/L 142 mmol/L Potassium Level 3.7 mmol/L 3.8 mmol/L Chloride Level 104 mmol/L 107 mmol/L Carbon Dioxide Level 23 mmol/L 21 mmol/L Anion Gap 13.0 mmol/L 14.0 mmol/L Blood Urea Nitrogen 19 mg/dl 31 mg/dl Creatinine 0.98 mg/dl 1.03 mg/dl Est Creatinine Clear Calc Drug Dose 115.0 ml/min 109.4 ml/min Estimated GFR () 127.2 119.8 Estimated GFR (Non- 109.8 103.4 BUN/Creatinine Ratio 19.0 30.3 Random Glucose 139 mg/dl 147 mg/dl Calcium Level 9.3 mg/dl 7.9 mg/dl Total Bilirubin 0.8 mg/dl Direct Bilirubin 0.2 mg/dl Aspartate Amino Transf (AST/SGOT) 17 U/L Alanine Aminotransferase (ALT/SGPT) 23 U/L Alkaline Phosphatase 58 U/L Total Protein 8.1 gm/dl Albumin 4.7 gm/dl Lipase 76 U/L Urine Color DK YELLOW Urine Appearance CLEAR Urine pH 7.0 Urine Specific [place] 1.031 Urine Protein TRACE Urine Glucose (UA) NEG Urine Ketones 4+ Urine Occult Blood NEG Urine Nitrite NEG Urine Bilirubin NEG Urine Urobilinogen NEG Urine Leukocyte Esterase TRACE Urine WBC (Auto) 1-5 /hpf Urine RBC (Auto) 5-10 /hpf Urine Hyaline Casts (Auto) 1-5 /lpf Urine Epithelial Cells (Auto) 5-10 /lpf Urine Bacteria (Auto) NEG Red Blood Cell Morphology Unremarkable Phosphorus Level 2.4 mg/dl Magnesium Level 2.0 mg/dl Test 07/22/17 09:23 Assessment & Plan Reason critically ill: 22 year old male presents with hematemesis and melena, with significant drop in H/H. Suspicious for Paige Xander tear or alcoholic gastritis Neuro - CAM negative. - Monitor for signs of altered mentation CV - Vitals: Tachycardia, SBP 120-160 - Maintain BP with IVF - Continue to monitor on telemetry Resp - Saturating well on RA - CXR: negative for acute pathology GI/Nutrition - Diet: NPO - NGT tube inserted - Zofran PRN nausea - GI consulted, Dr. Mallory arranging for endoscopy today - Continue Protonix drip Renal/ - IVF: Normosol @100cc/hr - UA shows evidence of dehydration, and some blood - Electrolytes grossly WNL, including creatinine. BUN elevated consistent with GI bleed. - Mendez not required. Patient voiding. - Monitor I/Os strictly - Trend BMP, and replete as necessary ID - Antibiotics: not warranted - Afebrile, no leukocytosis - Continue to monitor fever curve Endo - No history of DM. Glucose WNL. Monitor BG as per ICU protocol. Heme - Rapid drop in H/H warranted transfusion of 2 units pRBC (07/22/17). 2 more units held as precaution. - CBC q4h, with plans to transfuse if hematemesis ongoing or another rapid drop in H/H Access/Line - 3 peripheral IV, of which 2 are large bore VTE Prophylaxis - Chemical anticoagulation contraindicated given active GI bleed - SCDs Resident Physician Supervision Note: I was present with Dr. Nolasco during the history and exam. I discussed the case with the resident and agree with the findings and plan as documented in the note. Any exceptions or clarifications are listed here: 22 year old male with no past medical history admitted for hematemesis for one day, transferred to ICU overnight for declining H/h and tachycardia. Received 2 units PRBC with significant improvement in tachycardia, now HR in 70s NGT inserted, drained approx 100 ml of blood after which it cleared up. Plan is to continue on Protonix drip for now and perform upper endoscopy. Monitor CBC every 4 hours, low threshold for further transfusions For now differential diagnosis include Paige-Galicia tear and gastric or duodenal ulcer, but based on the history it seems more likely that it is the former. DVT prophylaxis with SCDs only Critical care time spent with this case greater than 30 minutes Documented By: Mark Mejia Resident Tracking Resident Involvement: Resident Care Provided Care Provided: Adult Hospital Medicine
[2017-07-22] MEDS ORDERED: ONDANSETRON INJ 2 MG/ML 2 ML VIAL IV PRN (11:15)
[2017-07-22] MEDS ORDERED: LABETALOL HCL IV 5 MG/ML 20ML IV PRN (11:15)
[2017-07-22] MEDS ORDERED: ATROPINE SULFATE 0.1 MG/ML 5ML SYR IV PRN (11:15)
[2017-07-22] MEDS ORDERED: FENTANYL CITRATE INJ 50 MCG/1 ML 2 ML VIAL IV PRN (11:15)
[2017-07-22] MEDS ORDERED: EpHEDrine SULFATE INJ 50 MG/ML AMP IV PRN (11:15)
[2017-07-22] MEDS ORDERED: MEPERIDINE HCL 25 MG/ML CARP IV PRN (11:15)
[2017-07-22] MEDS ORDERED: HYDROmorphone INJ 1 MG/ML SYR IV PRN (11:15)
[2017-07-22] MEDS ORDERED: MIDAZOLAM HCL 1 MG/ML 2ML VIAL ONE ×2 (11:30)
[2017-07-22] MEDS ORDERED: FENTANYL CITRATE INJ 50 MCG/1 ML 2 ML VIAL ONE (11:30)
[2017-07-22 12:06] LABS: HEMATOCRIT 27.3 % (42-52)
--- NOTE | 2017-07-22 12:32 | History & Physical Bridge Note ---
H&P Re-Evaluation Bridge Note: I have examined the patient, reviewed the History & Physical and in the interval since the performance of the History & Physical I have noted the following changes of clinical significance: No changes noted AAOx3 Nl S1S2 Lungs CTA Abd soft NT/Nd + BS - CCE Consent obtained for EGD for treatment/dx of upper GI bleed
[2017-07-22] MEDS ORDERED: LIDOCAINE HCL 2% 2 ML VIAL (20MG/ML) ONE (13:04)
[2017-07-22] MEDS ORDERED: SUCCINYLCHOLINE CHLORIDE 20 MG/ML 10 ML VIAL IV ONE (13:04)
[2017-07-22] MEDS ORDERED: SUCCINYLCHOLINE 100MG/5ML SYR IV ONE (13:04)
[2017-07-22] MEDS ORDERED: PROPOFOL IV EMULSION 10 MG/ML 20 ML VIAL IV ONE (13:04)
--- NOTE | 2017-07-22 13:40 | GI REPORT ---
Procedure Date: 07/22/2017 11:27 AM Procedure: Upper GI endoscopy Indications: Hematemesis, Melena, Active gastrointestinal bleeding Medicines: General Anesthesia Complications: No immediate complications. Estimated blood loss: None. Estimated Blood Loss: Estimated blood loss: none. Procedure: Pre-Anesthesia Assessment: - Prior to the procedure, a History and Physical was performed, and patient medications and allergies were reviewed. The patient's tolerance of previous anesthesia was also reviewed. The risks and benefits of the procedure and the sedation options and risks were discussed with the patient. All questions were answered, and informed consent was obtained. Prior Anticoagulants: The patient has taken no previous anticoagulant or antiplatelet agents. ASA Grade Assessment: III - A patient with severe systemic disease. After reviewing the risks and benefits, the patient was deemed in satisfactory condition to undergo the procedure. After obtaining informed consent, the endoscope was passed under direct vision. Throughout the procedure, the patient's blood pressure, pulse, and oxygen saturations were monitored continuously. The Scope was introduced through the mouth, and advanced to the third part of duodenum. The upper GI endoscopy was accomplished without difficulty. The patient tolerated the procedure well. Findings: The upper third of the esophagus and middle third of the esophagus were normal. LA Grade C (one or more mucosal breaks continuous between tops of 2 or more mucosal folds, less than 75% circumference) esophagitis with no bleeding was found 40 to 44 cm from the incisors. The Z-line was regular and was found 44 cm from the incisors. A 10 mm non-bleeding Paige-Galicia tear with stigmata of recent bleeding was found. Area was successfully injected with 10 mL of a 1:20,000 solution of epinephrine for hemostasis. For hemostasis, three hemostatic clips were successfully placed (MR conditional). There was no bleeding during, and at the end, of the procedure. The exam of the stomach was otherwise normal. The examined duodenum was normal. The cardia and gastric fundus were normal on retroflexion. Presumed M- tear at cardia with visible vessel with adherent clot. treated per above. Good blanching and clip obliteration of vessel. Impression: - Normal upper third of esophagus and middle third of esophagus. - LA Grade C reflux esophagitis. - Z-line regular, 44 cm from the incisors. - Paige-Galicia tear. Injected. Clips (MR conditional) were placed. - Normal examined duodenum. - No specimens collected. Recommendation: - Return patient to ICU for ongoing care. - Use a proton pump inhibitor IV BID. - - Clear liquid diet Later this evening. No solids or full liquids for 24 hours.. - If no bleeding over 24 hours can convert to po BID PPI for 8 weeks. MD Long Griggs MD 07/22/2017 1:39:14 PM This report has been signed electronically. Note Initiated On: 07/22/2017 11:27 AM I attest to the content of the Intraoperative Record and orders documented therein, exceptions below
--- NOTE | 2017-07-22 14:40 | Anesthesiology Progress Note ---
Anesthesia Post Op Note Date & Time Jul 22, 2017 at 14:39 Vital Signs Pain Intensity: 0.0 Vital Signs Past 12 Hours Date Time Temp Pulse Resp B/P (MAP) Pulse Ox O2 Delivery O2 Flow Rate FiO2 07/22/17 14:02 37.0 82 12 163/77 (105) 100 Room Air 07/22/17 12:00 Room Air 07/22/17 12:00 86 18 127/63 (84) 97 Room Air 07/22/17 10:05 79 16 142/72 (95) 98 Room Air 07/22/17 08:44 36.8 95 14 145/67 (93) 100 Room Air 07/22/17 08:40 36.8 98 21 145/67 100 07/22/17 08:25 36.8 105 21 137/64 99 07/22/17 08:11 36.8 114 21 171/92 100 07/22/17 08:03 36.8 104 19 171/92 100 07/22/17 08:00 Room Air 07/22/17 08:00 Room Air 07/22/17 07:43 36.7 111 22 148/74 98 07/22/17 07:31 36.9 102 19 128/73 99 07/22/17 06:25 110 160/94 (116) 105 07/22/17 05:56 36.8 142 158/72 (100) 100 Room Air 135 Notes Mental Status: alert / awake / arousable, participated in evaluation Pt Amnestic to Procedure: Yes Nausea / Vomiting: adequately controlled Pain: adequately controlled Airway Patency, RR, SpO2: stable & adequate BP & HR: stable & adequate Hydration State: stable & adequate Anesthetic Complications: no major complications apparent
[2017-07-22] MEDS ORDERED: NURSING VERBAL MED ORDER ONE (16:15)
--- NOTE | 2017-07-22 17:37 | Family Medicine Progress Note ---
Progress Note Date of Service Jul 22, 2017. Subjective Pt evaluation today including: conversation w/ patient, physical exam, chart review, lab review, conversation w/ databases software consultant, review of inpatient medication list Pain: minimal PO Intake: NPO Patient was seen at the bedside this morning and was vomiting bright red blood He was feeling nauseated and was pale in appearance. He denied any abdominal pain, chest pain, fevers or chills Patient was transferred to the ICU for ongoing care due to concern for ongoing bleeding and hgb dropping Overnight the patient had a drop in Hgb from 14.1 to 8.8. He was tachycardic and was given 2 bolus' of IVF. He was transferred to the ICU due to dropping hgb and ongoing haematemasis. He had a NGT inserted, which drained approx 100 ml of blood after which it cleared up. He was transfused with 2 units of PRBC and his repeat hgb was 9.7. Patient was taken for upper endoscopy by Dr. Hair who found a Paige Galicia tear which was injected with epinephrine and had hemostatic clips placed. The patient is currently stable and being monitored in the ICU for any ongoing bleeding. Constitutional: No fever, No chills Respiratory: No cough, No sputum, No wheezing, No shortness of breath Cardiovascular: No palpitations Abdomen: + nausea, + vomiting, + GI bleeding, No pain, No diarrhea, No constipation Neurologic: + weakness Psychiatric: + anxiety Heme: + abnormal bleeding/bruising Endo: + fatigue Medications Current Inpatient Medications Medications (Trade) Dose Ordered Sig/Aide Route Start Time Stop Time Status Last Admin Dose Admin Al Hydrox/Mg Hydrox/Simethicone (Maalox Max Susp) 15 ml Q4H PRN PO 07/21/17 17:30 08/20/17 17:29 Ondansetron HCl (Zofran Inj) 4 mg Q6H PRN IV 07/21/17 17:30 08/20/17 17:29 07/22/17 05:35 4 MG Miscellaneous (Iv Fluids Completed) 1 ea PRN PRN N/A 07/21/17 18:15 07/21/18 18:14 Acetaminophen 650 mg/Empty Bag 65 ml @ 260 mls/hr Q6H PRN IV 07/22/17 01:45 08/21/17 01:44 Morphine Sulfate (MoRPHine SULFATE INJ) 2 mg Q4H PRN IV 07/22/17 01:45 08/05/17 01:44 Lorazepam (Ativan Inj) 0.25 mg Q4H PRN IV 07/22/17 07:30 08/21/17 07:29 Pantoprazole Sodium 40 mg/ Syringe 10 ml @ 5 mls/min DAILY@ IV 07/22/17 21:00 08/21/17 20:59 Objective Vital Signs Date Time Temp Pulse Resp B/P (MAP) Pulse Ox O2 Delivery O2 Flow Rate FiO2 07/22/17 16:07 92 20 139/76 (97) 98 Room Air 07/22/17 16:00 Room Air 07/22/17 14:02 37.0 82 12 163/77 (105) 100 Room Air 07/22/17 12:00 Room Air 07/22/17 12:00 86 18 127/63 (84) 97 Room Air 07/22/17 10:05 79 16 142/72 (95) 98 Room Air 07/22/17 08:44 36.8 95 14 145/67 (93) 100 Room Air 07/22/17 08:40 36.8 98 21 145/67 100 07/22/17 08:25 36.8 105 21 137/64 99 07/22/17 08:11 36.8 114 21 171/92 100 07/22/17 08:03 36.8 104 19 171/92 100 07/22/17 08:00 Room Air 07/22/17 08:00 Room Air 07/22/17 07:43 36.7 111 22 148/74 98 07/22/17 07:31 36.9 102 19 128/73 99 07/22/17 06:25 110 160/94 (116) 105 07/22/17 05:56 36.8 142 158/72 (100) 100 Room Air 135 07/22/17 01:38 79 146/75 (98) 07/22/17 00:00 Room Air 07/21/17 23:00 79 153/68 (96) 140/75 (96) 07/21/17 22:53 36.6 98 20 118/77 (91) 99 Room Air 07/21/17 20:00 Room Air 07/21/17 18:00 Room Air 07/21/17 18:00 36.7 77 18 145/79 (101) 99 Room Air 07/21/17 17:52 73 16 174/60 99 07/21/17 17:31 73 16 174/60 99 Physical Exam General Appearance: + moderate distress, + thin ENT: hearing grossly normal, + pertinent finding (lips with crusted blood) Neck: supple, no JVD, trachea midline Respiratory/Chest: lungs clear, no respiratory distress, no accessory muscle use Cardiovascular: no edema, no JVD, no murmur, + tachycardia Abdomen: normal bowel sounds, non tender, soft Extremities: no pedal edema, no calf tenderness, normal capillary refill Neurologic/Psychiatric: oriented x 3, + pertinent finding (patient tremulous with anxious affect) Skin: no rash, + pallor Laboratory Results Results Past 24 Hours Test 07/22/17 00:02 07/22/17 06:29 07/22/17 09:23 07/22/17 11:54 Range/Units Hemoglobin 11.1 8.8 9.7 9.6 14.0-18.0 g/dL Hematocrit 31.4 25.1 27.7 27.3 42-52 % White Blood Count 11.91 4.8-10.8 K/uL Red Blood Count 2.82 4.7-6.1 M/uL Mean Corpuscular Volume 89.0 80-100 fL Mean Corpuscular Hemoglobin 31.2 25-34 pg Mean Corpuscular Hemoglobin Concent 35.1 32-36 g/dl Platelet Count 293 130-400 K/uL Mean Platelet Volume 9.5 7.4-10.4 fL Neutrophils (%) (Auto) 69.1 % Lymphocytes (%) (Auto) 21.0 % Monocytes (%) (Auto) 9.5 % Eosinophils (%) (Auto) 0.1 % Basophils (%) (Auto) 0.1 % Neutrophils # (Auto) 8.24 1.4-6.5 K/uL Lymphocytes # (Auto) 2.50 1.2-3.4 K/uL Monocytes # (Auto) 1.13 0.11-0.59 K/uL Eosinophils # (Auto) 0.01 0-0.5 K/uL Basophils # (Auto) 0.01 0-0.2 K/uL RDW Standard Deviation 40.4 36.4-46.3 fL RDW Coefficient of Variation 12.5 11.5-14.5 % Immature Granulocyte % (Auto) 0.2 % Immature Granulocyte # (Auto) 0.02 0.00-0.02 K/uL Red Blood Cell Morphology Unremarkable Sodium Level 142 136-145 mmol/L Potassium Level 3.8 3.5-5.1 mmol/L Chloride Level 107 98-107 mmol/L Carbon Dioxide Level 21 21-32 mmol/L Anion Gap 14.0 3-11 mmol/L Blood Urea Nitrogen 31 7-18 mg/dl Creatinine 1.03 0.60-1.40 mg/dl Est Creatinine Clear Calc Drug Dose 109.4 ml/min Estimated GFR () 119.8 Estimated GFR (Non- 103.4 BUN/Creatinine Ratio 30.3 10-20 Random Glucose 147 70-99 mg/dl Calcium Level 7.9 8.5-10.1 mg/dl Phosphorus Level 2.4 2.5-4.9 mg/dl Magnesium Level 2.0 1.8-2.4 mg/dl Test 07/22/17 13:56 07/22/17 16:59 Range/Units Hemoglobin 8.6 14.0-18.0 g/dL Hematocrit 25.0 42-52 % Bedside Glucose 84 70-99 mg/dl Microbiology Results 07/22/17 MRSA DNA Surveillance Screen - Final, Complete Specimen Negative for MRSA by DNA Probe Assessment and Plan 22 year old male presented to [facility] with hematemasis and was found to have a Paige Galicia tear Hypovolemic shock sec to acute blood loss anemia Resolved with volume resuscitation Monitor in ICU Paige Galicia Tear upper endoscopy with epinephrine injection and hemostatic clips placed continue proton pump inhibitor IV bid clear liquid diet with no solids or full liquids for >24 hours will need to be discharged on PO bid PPI for 8 weeks zofran prn IV for nausea Acute blood loss anemia due to upper GI bleed hgb dropped from 14.1 to 8.8 overnight transfused 2 units of PRBC, 2units ready on hold most recent hgb 8.6 continue to monitor q4hr Alcohol binge use patient drank 10-12 beers before vomiting episode will need to organize follow up with counsellor as outpatient DVT prophylaxis SCD's FULL CODE Continued [facility] stay due to: multiple IV medications needed Discharge planning: home Reviewed: Pt Seen/Exam by Me Constitutional: denies: fever Respiratory: negative: short of breath Cardiovascular: denies chest pain General Appearance: no apparent distress Respiratory: lungs clear, no respiratory distress Cardiovascular: regular rate, rhythm Gastrointestinal: normal bowel sounds, non tender, soft Neurologic/Psychiatric: alert, oriented x 3 Skin Characteristics: warm/dry, pallor Assessment/Plan Resident Physician Supervision Note: I independently interviewed and examined the patient and verified the lamar history and physical, reviewed labs and image studies, discussed the case with the resident Dr. Baldwin and agree with the findings and care plan.
[2017-07-22] MEDS: PANTOprazole INJ 40 MG in SYRINGE 0 ML IV SCH (20:13)
[2017-07-22 20:14] LABS: BASO % 0.2 %; BASO ABS # 0.02 K/uL (0-0.2); EOS % 0.1 %; HEMATOCRIT 24.6 % (42-52); IG% 0.2 %; LYMPH % 23.6 %; LYMPH ABS # 2.78 K/uL (1.2-3.4); MEAN CELL VOLUME 87.2 fL (80-100); MEAN CORPUSCULAR HEMOGLOBIN 31.2 pg (25-34); MEAN CORPUSCULAR HGB CONC 35.8 g/dl (32-36); MEAN PLATELET VOLUME 9.4 fL (7.4-10.4); MONO % 8.8 %; NEUT % 67.1 %; PLATELET COUNT 165 K/uL (130-400); RED BLOOD COUNT 2.82 M/uL (4.7-6.1); WHITE BLOOD COUNT 11.77 K/uL (4.8-10.8)
[2017-07-22 20:36] LABS: COMPLETE YES
[2017-07-23] VITALS (10 sets, daily range): BP systolic 104–146; BP diastolic 37–83; PULSE 57–88; TEMP 36.7–36.9; O2SAT 95–100
[2017-07-23 00:01] LABS: BASO % 0.1 %; BASO ABS # 0.01 K/uL (0-0.2); EOS % 0.1 %; HEMATOCRIT 23.4 % (42-52); IG% 0.3 %; LYMPH % 26.5 %; MEAN CORPUSCULAR HEMOGLOBIN 31.6 pg (25-34); MEAN CORPUSCULAR HGB CONC 35.9 g/dl (32-36); MEAN PLATELET VOLUME 9.1 fL (7.4-10.4); MONO % 6.4 %; NEUT % 66.6 %; PLATELET COUNT 148 K/uL (130-400); RED BLOOD COUNT 2.66 M/uL (4.7-6.1); WHITE BLOOD COUNT 11.34 K/uL (4.8-10.8)
[2017-07-23 00:47] LABS: COMPLETE YES
[2017-07-23 04:17] LABS: BASO % 0.2 %; BASO ABS # 0.02 K/uL (0-0.2); EOS % 0.5 %; HEMATOCRIT 23.4 % (42-52); IG% 0.1 %; LYMPH % 33.9 %; LYMPH ABS # 2.99 K/uL (1.2-3.4); MEAN CELL VOLUME 88.6 fL (80-100); MEAN CORPUSCULAR HEMOGLOBIN 31.1 pg (25-34); MEAN PLATELET VOLUME 9.3 fL (7.4-10.4); MONO % 6.8 %; NEUT % 58.5 %; PLATELET COUNT 137 K/uL (130-400); RED BLOOD COUNT 2.64 M/uL (4.7-6.1); WHITE BLOOD COUNT 8.81 K/uL (4.8-10.8)
[2017-07-23 04:39] LABS: COMPLETE YES
[2017-07-23 04:45] LABS: BLOOD UREA NITROGEN 9 mg/dl (7-18); CREATININE 0.74 mg/dl (0.60-1.40); GLUCOSE 91 mg/dl (70-99)
[2017-07-23 04:46] LABS: BUN/CREATININE RATIO 11.7 (10-20); CALCIUM 7.5 mg/dl (8.5-10.1); CARBON DIOXIDE 27 mmol/L (21-32); CHLORIDE 108 mmol/L (98-107); POTASSIUM 3.6 mmol/L (3.5-5.1); SODIUM 142 mmol/L (136-145)
--- NOTE | 2017-07-23 07:22 | Family Medicine Progress Note ---
Progress Note Date of Service Jul 23, 2017. Subjective Pt evaluation today including: conversation w/ patient, physical exam, chart review, lab review, conversation w/ senior management consultant, review of inpatient medication list Pain: none PO Intake: clear diet Voiding: no voiding problems Patient without any further hematemasis overnight Hgb very slowly trending down Denies any abdominal pain, nausea or vomiting overnight Stools still appear dark in colour Patient feeling much better overall Constitutional: No fever, No chills, No sweats Respiratory: No cough, No sputum, No shortness of breath Cardiovascular: No chest pain, No palpitations Abdomen: + GI bleeding, No pain, No nausea, No vomiting, No diarrhea, No constipation Musculoskeletal: No joint pain, No calf pain Male : No dysuria, No hematuria Skin: No rash, No new/changing skin lesions Medications Current Inpatient Medications Medications (Trade) Dose Ordered Sig/Aide Route Start Time Stop Time Status Last Admin Dose Admin Al Hydrox/Mg Hydrox/Simethicone (Maalox Max Susp) 15 ml Q4H PRN PO 07/21/17 17:30 08/20/17 17:29 Ondansetron HCl (Zofran Inj) 4 mg Q6H PRN IV 07/21/17 17:30 08/20/17 17:29 07/22/17 05:35 4 MG Miscellaneous (Iv Fluids Completed) 1 ea PRN PRN N/A 07/21/17 18:15 07/21/18 18:14 Acetaminophen 650 mg/Empty Bag 65 ml @ 260 mls/hr Q6H PRN IV 07/22/17 01:45 08/21/17 01:44 Morphine Sulfate (MoRPHine SULFATE INJ) 2 mg Q4H PRN IV 07/22/17 01:45 08/05/17 01:44 Lorazepam (Ativan Inj) 0.25 mg Q4H PRN IV 07/22/17 07:30 08/21/17 07:29 Pantoprazole Sodium 40 mg/ Syringe 10 ml @ 5 mls/min DAILY@21 IV 07/22/17 21:00 08/21/17 20:59 07/22/17 20:13 5 MLS/MIN Objective Vital Signs Date Time Temp Pulse Resp B/P (MAP) Pulse Ox O2 Delivery O2 Flow Rate FiO2 07/23/17 06:00 57 16 114/54 (74) 98 Room Air 07/23/17 04:00 Room Air 07/23/17 04:00 36.8 62 19 111/60 (77) 98 Room Air 07/23/17 02:00 65 19 124/65 (84) 99 Room Air 07/23/17 00:01 36.9 72 18 143/74 (97) 99 Room Air 07/22/17 23:59 Room Air 07/22/17 22:00 81 33 130/66 (87) 99 Room Air 07/22/17 20:00 37.1 87 15 132/72 (92) 98 Room Air 07/22/17 20:00 Room Air 07/22/17 18:09 77 19 Room Air 07/22/17 16:07 92 20 139/76 (97) 98 Room Air 07/22/17 16:00 Room Air 07/22/17 14:02 37.0 82 12 163/77 (105) 100 Room Air 07/22/17 12:00 Room Air 07/22/17 12:00 86 18 127/63 (84) 97 Room Air 07/22/17 10:05 79 16 142/72 (95) 98 Room Air 07/22/17 08:44 36.8 95 14 145/67 (93) 100 Room Air 07/22/17 08:40 36.8 98 21 145/67 100 07/22/17 08:25 36.8 105 21 137/64 99 07/22/17 08:11 36.8 114 21 171/92 100 07/22/17 08:03 36.8 104 19 171/92 100 07/22/17 08:00 Room Air 07/22/17 08:00 Room Air 07/22/17 07:43 36.7 111 22 148/74 98 07/22/17 07:31 36.9 102 19 128/73 99 Physical Exam General Appearance: WD/WN, no apparent distress Eyes: PERRL, EOMI ENT: pharynx normal Neck: supple, no adenopathy Respiratory/Chest: lungs clear, no respiratory distress, no accessory muscle use Cardiovascular: regular rate, rhythm, no JVD, no murmur Abdomen: normal bowel sounds, non tender, soft Extremities: non-tender, no calf tenderness, normal capillary refill Neurologic/Psychiatric: alert, normal mood/affect, oriented x 3 Skin: normal color, warm/dry, no rash Laboratory Results Results Past 24 Hours Test 07/22/17 09:23 07/22/17 11:54 07/22/17 13:56 07/22/17 16:59 Range/Units Hemoglobin 9.7 9.6 8.6 14.0-18.0 g/dL Hematocrit 27.7 27.3 25.0 42-52 % Bedside Glucose 84 70-99 mg/dl Test 07/22/17 20:04 07/22/17 20:13 07/22/17 23:54 07/23/17 04:02 Range/Units White Blood Count 11.77 11.34 8.81 4.8-10.8 K/uL Red Blood Count 2.82 2.66 2.64 4.7-6.1 M/uL Hemoglobin 8.8 8.4 8.2 14.0-18.0 g/dL Hematocrit 24.6 23.4 23.4 42-52 % Mean Corpuscular Volume 87.2 88.0 88.6 80-100 fL Mean Corpuscular Hemoglobin 31.2 31.6 31.1 25-34 pg Mean Corpuscular Hemoglobin Concent 35.8 35.9 35.0 32-36 g/dl Platelet Count 165 148 137 130-400 K/uL Mean Platelet Volume 9.4 9.1 9.3 7.4-10.4 fL Neutrophils (%) (Auto) 67.1 66.6 58.5 % Lymphocytes (%) (Auto) 23.6 26.5 33.9 % Monocytes (%) (Auto) 8.8 6.4 6.8 % Eosinophils (%) (Auto) 0.1 0.1 0.5 % Basophils (%) (Auto) 0.2 0.1 0.2 % Neutrophils # (Auto) 7.90 7.56 5.15 1.4-6.5 K/uL Lymphocytes # (Auto) 2.78 3.00 2.99 1.2-3.4 K/uL Monocytes # (Auto) 1.04 0.73 0.60 0.11-0.59 K/uL Eosinophils # (Auto) 0.01 0.01 0.04 0-0.5 K/uL Basophils # (Auto) 0.02 0.01 0.02 0-0.2 K/uL RDW Standard Deviation 42.6 43.3 43.8 36.4-46.3 fL RDW Coefficient of Variation 13.2 13.4 13.5 11.5-14.5 % Immature Granulocyte % (Auto) 0.2 0.3 0.1 % Immature Granulocyte # (Auto) 0.02 0.03 0.01 0.00-0.02 K/uL Red Blood Cell Morphology Unremarkable Unremarkable Unremarkable Bedside Glucose 78 70-99 mg/dl Sodium Level 142 136-145 mmol/L Potassium Level 3.6 3.5-5.1 mmol/L Chloride Level 108 98-107 mmol/L Carbon Dioxide Level 27 21-32 mmol/L Anion Gap 7.0 3-11 mmol/L Blood Urea Nitrogen 9 7-18 mg/dl Creatinine 0.74 0.60-1.40 mg/dl Est Creatinine Clear Calc Drug Dose 152.3 ml/min Estimated GFR () > 150.0 Estimated GFR (Non- 131.9 BUN/Creatinine Ratio 11.7 10-20 Random Glucose 91 70-99 mg/dl Calcium Level 7.5 8.5-10.1 mg/dl Test 07/23/17 06:22 Range/Units Bedside Glucose 89 70-99 mg/dl Microbiology Results 07/22/17 MRSA DNA Surveillance Screen - Final, Complete Specimen Negative for MRSA by DNA Probe Assessment and Plan 22 year old male presented to [facility] with hematemasis and was found to have a Paige Galicia tear Hypovolemic shock sec to acute blood loss anemia Resolved with volume resuscitation Monitor in ICU Paige Galicia Tear upper endoscopy with epinephrine injection and hemostatic clips placed continue proton pump inhibitor IV bid clear liquid diet with no solids or full liquids for >24 hours. tolerating clear liquids will need to be discharged on PO bid PPI for 8 weeks zofran prn IV for nausea Acute blood loss anemia due to upper GI bleed transfused 2 units of PRBC, 2units ready on hold h/h stable continue to monitor q4hr Alcohol binge use patient drank 10-12 beers before vomiting episode will need to organize follow up with counsellor as outpatient Transfer to medical floor. Anticipate d/c home in am DVT prophylaxis SCD's FULL CODE Continued [facility] stay due to: multiple IV medications needed Discharge planning: home Reviewed: Pt Seen/Exam by Me History no chest pain, gi bleeding. feeling much better today Constitutional: denies: fever Respiratory: negative: short of breath Cardiovascular: denies chest pain Gastrointestinal/Abdominal: negative: abdominal pain General Appearance: no apparent distress Respiratory: lungs clear, no respiratory distress Cardiovascular: regular rate, rhythm Gastrointestinal: normal bowel sounds, non tender, soft Neurologic/Psychiatric: alert, oriented x 3 Skin Characteristics: warm/dry Assessment/Plan Resident Physician Supervision Note: I independently interviewed and examined the patient and verified the lamar history and physical, reviewed labs and image studies, discussed the case with the resident Dr. Baldwin and agree with the findings and care plan.
[2017-07-23] MEDS: PANTOprazole INJ 40 MG in SYRINGE 0 ML IV SCH ×2 (07:35→21:29)
--- NOTE | 2017-07-23 07:50 | Anesthesiology Progress Note ---
Anesthesia Post Op Note Date & Time Jul 23, 2017 at 07:50 Vital Signs Pain Intensity: 0.0 Vital Signs Past 12 Hours Date Time Temp Pulse Resp B/P (MAP) Pulse Ox O2 Delivery O2 Flow Rate FiO2 07/23/17 06:00 57 16 114/54 (74) 98 Room Air 07/23/17 04:00 Room Air 07/23/17 04:00 36.8 62 19 111/60 (77) 98 Room Air 07/23/17 02:00 65 19 124/65 (84) 99 Room Air 07/23/17 00:01 36.9 72 18 143/74 (97) 99 Room Air 07/22/17 23:59 Room Air 07/22/17 22:00 81 33 130/66 (87) 99 Room Air 07/22/17 20:00 37.1 87 15 132/72 (92) 98 Room Air 07/22/17 20:00 Room Air Notes Mental Status: alert / awake / arousable, participated in evaluation Pt Amnestic to Procedure: Yes Nausea / Vomiting: adequately controlled Pain: adequately controlled Airway Patency, RR, SpO2: stable & adequate BP & HR: stable & adequate Hydration State: stable & adequate Anesthetic Complications: no major complications apparent
[2017-07-23 08:48] LABS: BASO % 0.1 %; BASO ABS # 0.01 K/uL (0-0.2); EOS % 0.5 %; HEMATOCRIT 24.3 % (42-52); IG% 0.3 %; LYMPH % 34.1 %; LYMPH ABS # 2.48 K/uL (1.2-3.4); MEAN CELL VOLUME 88.4 fL (80-100); MEAN CORPUSCULAR HEMOGLOBIN 30.9 pg (25-34); MEAN PLATELET VOLUME 9.4 fL (7.4-10.4); MONO % 6.7 %; NEUT % 58.3 %; PLATELET COUNT 139 K/uL (130-400); RED BLOOD COUNT 2.75 M/uL (4.7-6.1); WHITE BLOOD COUNT 7.28 K/uL (4.8-10.8)
[2017-07-23 09:16] LABS: COMPLETE YES; HYPERSEGMENTED POLYS 1+; TOXIC GRANULATION 1+; VACUOLIZATION 1+
--- NOTE | 2017-07-23 11:36 | Critical Care Progress Note ---
Critical Care Progress Note Date of Service Jul 23, 2017. ICU Day ICU Day Number: [address] Mejia Subjective Patient well overnight, denies acute issues. Has not had any further hematemesis , although he has still had some dark BM. He denies CP, dyspnea, palpitations, headaches, vision changes, N/V, abdominal pain. He is tolerating clear liquids. No issues with voiding. Objective GENERAL: alert, lying in bed, no acute distress, non-toxic HEAD: NC/AT EYES: PERRL, EOMI, normal sclera, conjunctival pallor OROPHARYNX: No perioral cyanosis. No exudate, no erythema. Lips, buccal mucosa, and tongue normal and mucous membranes are dry NECK: Supple, no adenopathy, non-tender LUNGS: Normal chest wall mechanics. CTAB, good air entry. No crepitations, crackles, or wheezes HEART: RRR, S1 and S2 normal, no murmurs appreciated ABDOMEN: Soft, non-tender, normo-active bowel sounds, no masses, no rebound or guarding. SKIN: Warm, pink, dry. No erythema, rashes, or bruising. EXTREMITIES: Grossly normal. Moving all 4 limbs, strength 5/5. No pitting edema. Calves supple. NEURO: Alert, Ox3. No focal deficits. Cranial nerves II-XII grossly intact, normal speech. PSYCH: Mood and affect appropriate. Current SOFA Score SOFA Score Response (Comments) Value Platelets (x10) > 150 0 Bilirubin (mg/dL) < 1.2 0 [place] Coma Score 15 0 Level of Hypotension No Hypotension 0 Creatinine (mg/dL) < 1.2 0 Total 0 Assessment & Plan Reason critically ill: 22 year old male presents with hematemesis and melena, with significant drop in H/H, with confirmed Paige Galicia tear on endoscopy Neuro - CAM negative. - Monitor for signs of altered mentation CV - Vitals: 50-90s, SBP 110-150 - Hemodynamically stable - Continue to monitor on telemetry Resp - Saturating well on RA, oxygen support if needed GI/Nutrition - GI consulted, recs appreciated. - s/p EGD with epinephrine and clips to close Paige Galicia tear - Diet: clear liquids, may advance in the afternoon if no recurrence of bleeding - Zofran PRN nausea - Currently IV Protonix BID. To be discharge on PO Protonix BID x 8 weeks Renal/ - IVF: Discontinued since tolerating PO - Electrolytes WNL, Trend BMP - Mendez not required. Patient voiding. - Monitor I/Os strictly ID - Afebrile, no leukocytosis. Antibiotics not warranted - Continue to monitor fever curve Endo - No history of DM. Glucose WNL. Monitor BG as per ICU protocol. Heme - Transfusion of 2 units pRBC (07/22/17). 2 more units held as precaution. - Trend CBC, with low threshold to transfuse if hematemesis ongoing or another rapid drop in H/H Access/Line - 3 peripheral IV, of which 2 are large bore VTE Prophylaxis - Chemical anticoagulation contraindicated given active GI bleed - SCDs Resident Physician Supervision Note: I was present with Dr. Nolasco during the history and exam. I discussed the case with the resident and agree with the findings and plan as documented in the note. Any exceptions or clarifications are listed here: Patient with upper GI bleeding secondary to Paige-Galicia tear in the context of alcohol consumption, s/p 2 units PRBC yesterday, s/p EGD yesterday (injected and clipped). Doing well, HD stable, no further tachycardia, H/H remained stable, no further evidence of bleeding, tolerating diet, ambulating. May be transferred to regular floor. Continue PPI, Protonix BID Critical care time spent with the patient, reviewing the chart greater than 25 minutes Documented By: Mark Mejia MD Consults & Procedures Consultants: Gastroenterology Procedures: Transfusion 2 units pRBC (07/22) EGD with epinephrine injection and clips (07/22) Data Medications: Current Inpatient Medications Medications (Trade) Dose Ordered Sig/Aide Route Start Time Stop Time Status Last Admin Dose Admin Al Hydrox/Mg Hydrox/Simethicone (Maalox Max Susp) 15 ml Q4H PRN PO 07/21/17 17:30 08/20/17 17:29 Ondansetron HCl (Zofran Inj) 4 mg Q6H PRN IV 07/21/17 17:30 08/20/17 17:29 07/22/17 05:35 4 MG Miscellaneous (Iv Fluids Completed) 1 ea PRN PRN N/A 07/21/17 18:15 07/21/18 18:14 Acetaminophen 650 mg/Empty Bag 65 ml @ 260 mls/hr Q6H PRN IV 07/22/17 01:45 08/21/17 01:44 Morphine Sulfate (MoRPHine SULFATE INJ) 2 mg Q4H PRN IV 07/22/17 01:45 08/05/17 01:44 Lorazepam (Ativan Inj) 0.25 mg Q4H PRN IV 07/22/17 07:30 08/21/17 07:29 Pantoprazole Sodium 40 mg/ Syringe 10 ml @ 5 mls/min DAILY@ IV 07/22/17 21:00 08/21/17 20:59 07/23/17 07:35 5 MLS/MIN Vital Signs: Date Time Temp Pulse Resp B/P (MAP) Pulse Ox O2 Delivery O2 Flow Rate FiO2 07/23/17 10:29 59 16 116/37 (63) 98 Room Air 07/23/17 08:11 66 16 104/48 (66) 97 Room Air 07/23/17 08:00 Room Air 07/23/17 08:00 Room Air 07/23/17 06:00 57 16 114/54 (74) 98 Room Air 07/23/17 04:00 Room Air 07/23/17 04:00 36.8 62 19 111/60 (77) 98 Room Air 07/23/17 02:00 65 19 124/65 (84) 99 Room Air 07/23/17 00:01 36.9 72 18 143/74 (97) 99 Room Air 07/22/17 23:59 Room Air 07/22/17 22:00 81 33 130/66 (87) 99 Room Air 07/22/17 20:00 37.1 87 15 132/72 (92) 98 Room Air 07/22/17 20:00 Room Air 07/22/17 18:09 77 19 Room Air 07/22/17 16:07 92 20 139/76 (97) 98 Room Air 07/22/17 16:00 Room Air 07/22/17 14:02 37.0 82 12 163/77 (105) 100 Room Air 07/22/17 12:00 Room Air 07/22/17 12:00 86 18 127/63 (84) 97 Room Air Laboratory Results: Last 24 Hours Test 07/22/17 11:54 07/22/17 13:56 07/22/17 16:59 07/22/17 20:04 Hemoglobin 9.6 g/dL 8.6 g/dL 8.8 g/dL Hematocrit 27.3 % 25.0 % 24.6 % Bedside Glucose 84 mg/dl White Blood Count 11.77 K/uL Red Blood Count 2.82 M/uL Mean Corpuscular Volume 87.2 fL Mean Corpuscular Hemoglobin 31.2 pg Mean Corpuscular Hemoglobin Concent 35.8 g/dl Platelet Count 165 K/uL Mean Platelet Volume 9.4 fL Neutrophils (%) (Auto) 67.1 % Lymphocytes (%) (Auto) 23.6 % Monocytes (%) (Auto) 8.8 % Eosinophils (%) (Auto) 0.1 % Basophils (%) (Auto) 0.2 % Neutrophils # (Auto) 7.90 K/uL Lymphocytes # (Auto) 2.78 K/uL Monocytes # (Auto) 1.04 K/uL Eosinophils # (Auto) 0.01 K/uL Basophils # (Auto) 0.02 K/uL RDW Standard Deviation 42.6 fL RDW Coefficient of Variation 13.2 % Immature Granulocyte % (Auto) 0.2 % Immature Granulocyte # (Auto) 0.02 K/uL Red Blood Cell Morphology Unremarkable Test 07/22/17 20:13 07/22/17 23:54 07/23/17 04:02 07/23/17 06:22 Bedside Glucose 78 mg/dl 89 mg/dl White Blood Count 11.34 K/uL 8.81 K/uL Red Blood Count 2.66 M/uL 2.64 M/uL Hemoglobin 8.4 g/dL 8.2 g/dL Hematocrit 23.4 % 23.4 % Mean Corpuscular Volume 88.0 fL 88.6 fL Mean Corpuscular Hemoglobin 31.6 pg 31.1 pg Mean Corpuscular Hemoglobin Concent 35.9 g/dl 35.0 g/dl Platelet Count 148 K/uL 137 K/uL Mean Platelet Volume 9.1 fL 9.3 fL Neutrophils (%) (Auto) 66.6 % 58.5 % Lymphocytes (%) (Auto) 26.5 % 33.9 % Monocytes (%) (Auto) 6.4 % 6.8 % Eosinophils (%) (Auto) 0.1 % 0.5 % Basophils (%) (Auto) 0.1 % 0.2 % Neutrophils # (Auto) 7.56 K/uL 5.15 K/uL Lymphocytes # (Auto) 3.00 K/uL 2.99 K/uL Monocytes # (Auto) 0.73 K/uL 0.60 K/uL Eosinophils # (Auto) 0.01 K/uL 0.04 K/uL Basophils # (Auto) 0.01 K/uL 0.02 K/uL RDW Standard Deviation 43.3 fL 43.8 fL RDW Coefficient of Variation 13.4 % 13.5 % Immature Granulocyte % (Auto) 0.3 % 0.1 % Immature Granulocyte # (Auto) 0.03 K/uL 0.01 K/uL Red Blood Cell Morphology Unremarkable Unremarkable Sodium Level 142 mmol/L Potassium Level 3.6 mmol/L Chloride Level 108 mmol/L Carbon Dioxide Level 27 mmol/L Anion Gap 7.0 mmol/L Blood Urea Nitrogen 9 mg/dl Creatinine 0.74 mg/dl Est Creatinine Clear Calc Drug Dose 152.3 ml/min Estimated GFR () > 150.0 Estimated GFR (Non- 131.9 BUN/Creatinine Ratio 11.7 Random Glucose 91 mg/dl Calcium Level 7.5 mg/dl Test 07/23/17 08:34 White Blood Count 7.28 K/uL Red Blood Count 2.75 M/uL Hemoglobin 8.5 g/dL Hematocrit 24.3 % Mean Corpuscular Volume 88.4 fL Mean Corpuscular Hemoglobin 30.9 pg Mean Corpuscular Hemoglobin Concent 35.0 g/dl Platelet Count 139 K/uL Mean Platelet Volume 9.4 fL Neutrophils (%) (Auto) 58.3 % Lymphocytes (%) (Auto) 34.1 % Monocytes (%) (Auto) 6.7 % Eosinophils (%) (Auto) 0.5 % Basophils (%) (Auto) 0.1 % Neutrophils # (Auto) 4.24 K/uL Lymphocytes # (Auto) 2.48 K/uL Monocytes # (Auto) 0.49 K/uL Eosinophils # (Auto) 0.04 K/uL Basophils # (Auto) 0.01 K/uL RDW Standard Deviation 42.8 fL RDW Coefficient of Variation 13.2 % Immature Granulocyte % (Auto) 0.3 % Immature Granulocyte # (Auto) 0.02 K/uL Hypersegmented Polys 1+ Toxic Granulation 1+ Toxic Vacuolation 1+ Red Blood Cell Morphology Unremarkable Resident Tracking Resident Involvement: Resident Care Provided Care Provided: Adult Hospital Medicine
[2017-07-23 12:21] LABS: BASO % 0.3 %; BASO ABS # 0.02 K/uL (0-0.2); EOS % 0.9 %; HEMATOCRIT 25.3 % (42-52); IG% 0.3 %; LYMPH % 30.6 %; LYMPH ABS # 2.11 K/uL (1.2-3.4); MEAN CELL VOLUME 88.5 fL (80-100); MEAN CORPUSCULAR HEMOGLOBIN 30.8 pg (25-34); MEAN CORPUSCULAR HGB CONC 34.8 g/dl (32-36); MEAN PLATELET VOLUME 9.4 fL (7.4-10.4); MONO % 7.2 %; NEUT % 60.7 %; PLATELET COUNT 144 K/uL (130-400); RED BLOOD COUNT 2.86 M/uL (4.7-6.1)
[2017-07-23 12:52] LABS: COMPLETE YES; HYPERSEGMENTED POLYS 1+; TOXIC GRANULATION 1+
--- NOTE | 2017-07-23 16:13 | PROGRESS NOTE ---
DATE: 07/23/2017 HISTORY OF PRESENT ILLNESS: The patient is hospitalized with a large volume GI bleed following binge alcohol. The patient was scoped yesterday and found to have a 1 cm Paige-Galicia tear at the GE junction that was treated with an injection and clipping by Dr. Hair yesterday. The patient today is having no abdominal pain and he is tolerating clear liquids. He was transfused 2 units of blood and his hemoglobin is remaining stable at 8.8. He has had no obvious further bleeding. IMPRESSION: The patient has had a gastrointestinal bleed from Paige-Galicia tear which is improving. Plan on advancing the patient's diet to a soft diet tonight and if he tolerates that, he should probably be able to go home tomorrow. I would recommend that he stay on a soft diet for a week and take an oral over the counter iron supplements to help bring his blood count back up to normal over the next couple months.
--- NOTE | 2017-07-23 23:32 | Progress Note ---
Post ICU Progress Note Date & Time Jul 23, 2017 at 23:28 Vital Signs Vital Signs Past 12 Hours Date Time Temp Pulse Resp B/P (MAP) Pulse Ox O2 Delivery O2 Flow Rate FiO2 07/23/17 16:02 99 Room Air 07/23/17 14:22 36.7 88 18 146/83 (104) 99 Room Air 07/23/17 12:16 78 16 133/62 (85) 100 Room Air 07/23/17 12:00 Room Air Notes Mental Status: alert / awake Nausea / Vomiting: adequately controlled Pain: adequately controlled Airway Patency, RR, SpO2: stable & adequate BP & HR: stable & adequate Patient is a 22-year-old male who was initially admitted to the ICU secondary to upper GI bleed from Paige-Galicia tear. Patient received PRBCs for stabilization of a rapid drop in his H&H. His H&H is stable to the last 24 hours. Patient reports that he felt well today and he is hopeful that he could make his noon class tomorrow. Patient does report an episode of lightheadedness and palpitations while taking a shower tonight. Otherwise, he is tolerating a soft diet and his ear to be discharged. Consider outpatient follow up in 1 to 2 weeks with: GI as scheduled. Repeat imaging needed: N/A Follow up cultures: N/A Reviewed progress notes, labs, and inpatient medication list Continue current management Additional recommendations: None at this time. If H&H remains stable overnight , hopeful for discharge tomorrow. Thank you for allowing us to participate in the care of this patient. Critical Care Services will sign off at this time. Please feel free to reconsult as needed. Consults & Procedures Consultants: Gastroenterology Procedures: Transfusion 2 units pRBC (07/22) EGD with epinephrine injection and clips (07/22)
[2017-07-24] MEDS ORDERED: PANT40TA PO (06:57)
--- NOTE | 2017-07-24 07:04 | Discharge Instructions ---
Discharge Instructions Date of Service Jul 24, 2017. Admission Reason for Admission: Hematemesis Discharge Discharge Diagnosis / Problem: Esophageal Tear Discharge Goals Goal(s): Improve disease control, Therapeutic intervention, Prevent Disease Progression Activity Recommendations Activity Limitations: per Instructions/Follow-up section . Instructions / Follow-Up Instructions / Follow-Up You came into the hospital because you were vomiting blood Your red blood cell count was low and therefore you were transferred to the intensive care unit where you received 2 units of packed red blood cells GI were consulted and they did a upper endoscopy where they found a small tear in your esophagus. They stabilized the bleeding. You Hgb on discharge was stable. You will need to follow up with GI in 1-2 weeks for for follow up. They suggest that you continue a soft diet for 1 week. You will need to berry picker a prescription from the pharmacy. You will need to take it for the next two months. You will also need to take iron supplements over the counter until your red blood cell count stabilizes Please follow up with your PCP at [facility] in order to monitor your red blood cell count every month for the next 2-3 months. Please refrain from any strenous exercise for the next 1-2 weeks. Please refrain from any couple use for the next couple months. Remember that if you do drink alcohol that you need to drink in moderation. If you have any further vomiting of blood, severe light headedness, blood in your stool or chest pain then please come back to the emergency department Current Hospital Diet Patient's current hospital diet: Low Fiber Diet Discharge Diet Recommended Diet: Regular Diet Diet Texture: Mechanical Soft (ground) Procedures Procedures Performed: Esophagogastroduodenoscopy with Repair of Paige-Galicia Tear Pending Studies Studies pending at discharge: no Medical Emergencies . Who to Call and When: Medical Emergencies: If at any time you feel your situation is an emergency, please call 911 immediately. . Non-Emergent Contact Non-Emergency issues call your: Primary Care Provider, [employer] [facility] [employer] . . "Provider Documentation" section prepared by Olayinka Baldwin. . VTE Core Measure Inpt VTE Proph given/why not?: Contraindicated
[2017-07-24 07:05] LABS: HEMATOCRIT 25.5 % (42-52); MEAN CELL VOLUME 87.6 fL (80-100); MEAN CORPUSCULAR HEMOGLOBIN 31.3 pg (25-34); MEAN CORPUSCULAR HGB CONC 35.7 g/dl (32-36); MEAN PLATELET VOLUME 9.7 fL (7.4-10.4); PLATELET COUNT 181 K/uL (130-400); RED BLOOD COUNT 2.91 M/uL (4.7-6.1); WHITE BLOOD COUNT 8.55 K/uL (4.8-10.8)
[2017-07-24 07:18] VITALS: BP 136/77; PULSE 56; TEMP 36.6; O2SAT 100
[2017-07-24 07:47] LABS: BUN/CREATININE RATIO 13.5 (10-20); CALCIUM 8.1 mg/dl (8.5-10.1); CREATININE 0.82 mg/dl (0.60-1.40); POTASSIUM 3.5 mmol/L (3.5-5.1)
[2017-07-24] MEDS: PANTOprazole INJ 40 MG in SYRINGE 0 ML IV SCH (08:14)
[2017-07-24 09:44] VITALS: BP 136/77; PULSE 56; TEMP 36.6; O2SAT 100
--- NOTE | 2017-07-24 15:24 | Discharge Summary ---
Discharge Summary Date of Service Jul 24, 2017. (Olayinka Baldwin MD) Discharge Summary Admission Date: Jul 22, 2017 at 09:31 Discharge Date: Jul 24, 2017 Discharge Disposition: Home Principal Diagnosis: Paige Galicia Tear Procedures: Upper endoscopy with clipping and epinephrine injection Consultations: GI Associate Professor Of Kinesiology (Olayinka Baldwin MD) Medication Reconciliation New Medications: Pantoprazole (Protonix) 40 Mg Tab 40 MG PO BID for 60 Days, #120 TAB Discharge Exam Patient feeling well this morning Without any abdominal pain, nausea, vomiting, fevers or chills [place] a little light headed when standing and when in shower Review of Systems: Constitutional: No fever, No chills, No sweats ENT: No sore throat, No trouble swallowing Respiratory: No cough, No sputum, No shortness of breath, No hemoptysis Cardiovascular: No chest pain, No claudication, No palpitations Abdomen: No pain, No nausea, No vomiting, No GI bleeding Hematologic / Lymphatic: No abnormal bleeding/bruising Integumentary: No rash, No itch, No new/changing skin lesions Physical Exam: General Appearance: WD/WN, no apparent distress ENT: hearing grossly normal, pharynx normal Respiratory/Chest: lungs clear, no respiratory distress, no accessory muscle use Cardiovascular: regular rate, rhythm, no edema, no murmur, normal peripheral pulses Abdomen / GI: normal bowel sounds, non tender, soft Neurologic/Psychiatric: alert, normal mood/affect, oriented x 3 Skin: normal color, warm/dry, no rash (Olayinka Baldwin MD) no more GI bleeding Review of Systems: Constitutional: No fever Respiratory: No shortness of breath Cardiovascular: No chest pain Abdomen: No pain, No GI bleeding Physical Exam: General Appearance: no apparent distress Respiratory/Chest: lungs clear, no respiratory distress Cardiovascular: regular rate, rhythm Abdomen / GI: normal bowel sounds, non tender, soft Neurologic/Psychiatric: alert, oriented x 3 Skin: warm/dry (Kiera Rincon M.D.) Hospital Course 22 year old male presented to [facility] with hematemasis and was found to have a Paige Galicia tear Hypovolemic shock sec to acute blood loss anemia Resolved with volume resuscitation Monitored in ICU Paige Galicia Tear upper endoscopy with epinephrine injection and hemostatic clips placed discharged with soft diet for 1 week discharged on PPI bid PO for 8 weeks Acute blood loss anemia due to upper GI bleed transfused 2 units of PRBC h/h stable on discharge hgb 9.1 upon discharge advised to take OTC iron supplement until Hgb within normal limits will get H[facility] Alcohol binge use patient drank 10-12 beers before vomiting episode will need to organize follow up with counsellor as outpatient Total Time Spent: Less than 30 minutes This includes examination of the patient, discharge planning, medication reconciliation, and communication with other providers. (Olayinka Baldwin MD) Resident Physician Supervision Note: I independently interviewed and examined the patient and verified the lamar history and physical, reviewed labs and image studies, discussed the case with the resident Dr. Baldwin and agree with the findings and care plan. Total Time Spent: Greater than 30 minutes (40) (Kiera Rincon M.D.) Discharge Instructions Please refer to the electronic Patient Visit Report (Discharge Instructions) for additional information. (Olayinka Baldwin MD) Additional Copies To [facility]
== END 2017-07-24 10:15 | disposition home or self-care (01) | DRG 326 ==
LOC: C.EDB 14:25 → C.MS4W 17:32 → ENRESERV 17:43 → C.MSICU 07-22 06:48 → ENRESERV 07-22 06:57 → EDBEDREQSVC 07-22 06:57 → OBSVTOIN 07-22 09:31 → C.4E 07-23 13:07 → ENRESERV 07-23 13:33
PROVIDERS: ADMIT Family Medicine; ATTEND Family Medicine
PROC: 0DQ68ZZ Repair Stomach, Via Natural or Artificial Opening Endoscopic (ICD-10-PCS; principal; 2017-07-22 11:45)
DX: K22.6 Gastro-esophageal laceration-hemorrhage syndrome (principal); R57.1 Hypovolemic shock; D62 Acute posthemorrhagic anemia; F17.200 Nicotine dependence, unspecified, uncomplicated; F10.10 Alcohol abuse, uncomplicated; K21.0 Gastro-esophageal reflux disease with esophagitis